=== PATIENT | male | born 1935 | race Caucasian/White ===

== ENCOUNTER → 2022-04-23 12:58 | Outpatient (BNVA) | payer MEDICARE, MEDICAID, SELFPAY | PROVIDERS: Visit Provider Nurse Practitioner Family | DX: I96 Gangrene, not elsewhere classified (principal); L89.602 Pressure ulcer of unspecified heel, stage 2 | CPT/HCPCS: 99213 ==

== ENCOUNTER → 2022-04-30 10:18 | Outpatient (BNVA) | payer MEDICARE, MEDICAID, SELFPAY | PROVIDERS: Visit Provider Nurse Practitioner Family | DX: I96 Gangrene, not elsewhere classified (principal); L89.602 Pressure ulcer of unspecified heel, stage 2 | CPT/HCPCS: 99213 ==

== ENCOUNTER → 2022-05-01 14:13 | Outpatient (BNVA) | payer MEDICARE, MEDICAID, SELFPAY | PROVIDERS: Visit Provider Podiatrist Foot & Ankle Surgery | DX: L97.423 Non-pressure chronic ulcer of left heel and midfoot with necrosis of muscle (principal); S91.309A Unspecified open wound, unspecified foot, initial encounter; X58.XXXA Exposure to other specified factors, initial encounter | CPT/HCPCS: 73630; 87070; 87075; 87077; 87186; 87205; 99204 ==

== ENCOUNTER 2022-05-02 18:22 | Inpatient (IN) | payer MEDICARE, MEDICAID, SELFPAY ==
[2022-05-02 18:58] VITALS: BMI 22.1
--- NOTE | 2022-05-02 19:00 | ED_ITS ---
Documented by User: JUDI Rodriguez 05/02/22 20:28 HPI - Extremity Injury (Lower) General: Chief Complaint: Skin/Abscess/Foreign Body Stated Complaint: left leg infection Time Seen by Provider: 05/02/22 18:59 History of Present Illness: Patient was referred to the ER for evaluation and admittance to the hospital in order to do surgery tomorrow to debride a chronic wound to the left foot. Patient has had increasing worsening of the wound and Dr. Saxena wanted him to come in tonight for admission and plan for surgery in the morning. Patient appears chronically ill but not toxic. Patient reports no nausea or vomiting. Patient reports no fever. Review of Systems Const: Denies: fever(s) Resp: Denies: dyspnea GI: Denies: nausea or vomiting Skin/Breast: Reports: changing lesions Physical Exam Const: COMMON NORMALS: alert HENMT: COMMON NORMALS: normocephalic HEAD & SCALP: normocephalic Resp: COMMON NORMALS: normal respiratory effort and clear to auscultation bilaterally AUSCULTATION: clear to auscultation bilaterally Cardio: COMMON NORMALS: regular rate and regular rhythm RATE: regular rate RHYTHM: regular rhythm Extremity: LEFT LOWER EXTREMITY: Yes foot & digits (Chronic wound to the left heel to deep tissue, significant drainage) Neuro: SENSORIUM/ORIENTATION: Yes alert Skin: LESIONS: lesion noted (Left heel) Course ED course: 2009, reviewed patient with Dr. Byrd whom agreed to plan for admission to the hospital. Vital Signs: Vital signs: Vital Signs Temperature 98.3 F 05/02/22 19:02 Pulse Rate 80 05/02/22 19:02 Respiratory Rate 18 05/02/22 19:02 Blood Pressure 121/76 05/02/22 19:02 Pulse Oximetry 95 05/02/22 19:02 Oxygen Delivery Me thod 05/02/22 19:02 MDM - Extremity Injury (Lower) Medical Decision Making Patient was referred to the emergency department for evaluation and admission to the hospital in order to have wound debridement of a chronic ulcer to the left heel. Patient has had increasing drainage and discomfort to the heel. Patient denies any fever nausea vomiting. On exam patient appears chronically ill but not toxic. Vital signs are normal. Differential diagnosis includes but not limited to sepsis, cellulitis, wound infection, osteomyelitis. Patient's white count was 10,000, creatinine was 1.3, lactate was 2.6. Patient has some elevation in alkaline phosphate 202. CRP was 6.4. X-ray shows no sign of osteomyelitis at this time. Patient needs admission to the hospital for repeat labs and surgical debridement of wound. Reviewed this with Dr. Byrd who agreed to plan for admission. Dr. Saxena is aware of patient's admission to the hospital and plans for surgery tomorrow. Lab Data : 05/02/22 19:10 05/02/22 19:10 Radiology Impressions Foot X-Ray 05/02/22 19:10 IMPRESSION: No sign of osteomyelitis. Laboratory Results WBC 10.9 10^3/uL (4.0-10.0) H 05/02/22 19:10 RBC 4.91 10^6/uL (4.1-5.3) 05/02/22 19:10 Hgb 13.7 g/dL (11.7-16.6) 05/02/22 19:10 Hct 43.2 % (42.0-52.0) 05/02/22 19:10 MCV 88.0 fl (80-94) 05/02/22 19:10 MCH 27.9 pg (28.0-34.0) L 05/02/22 19:10 MCHC 31.7 g/dL (30.0-36.0) 05/02/22 19:10 RDW 16.0 % (12.1-15.1) H 05/02/22 19:10 Plt Count 447 10^3/cmm (130-400) H 05/02/22 19:10 MPV 11.0 fL (7.4-10.4) H 05/02/22 19:10 Neut % (Auto) 69.3 % 05/02/22 19:10 Lymph % (Auto) 16.2 % 05/02/22 19:10 [place] % (Auto) 11.0 % 05/02/22 19:10 Eos % (Auto) 1.8 % 05/02/22 19:10 Baso % (Auto) 1.2 % 05/02/22 19:10 Neut # (Auto) 7.55 10^3/uL (1.8-7.7) 05/02/22 19:10 Lymph # (Auto) 1.8 10^3/uL (0.8-4.8) 05/02/22 19:10 [place] # (Auto) 1.2 10^3/uL (0.2-0.9) H 05/02/22 19:10 Eos # (Auto) 0.2 10^3/uL (0.0-0.8) 05/02/22 19:10 Baso # (Auto) 0.1 10^3/uL (0.0-0.1) 05/02/22 19:10 Nucleated RBC % (auto) 0 % 05/02/22 19:10 Nucleated RBCs # 0.0 /100WBC 05/02/22 19:10 Sodium 130 mmol/L (136-145) L 05/02/22 19:10 Potassium 4.5 mmol/L (3.5-5.1) 05/02/22 19:10 Chloride 95 mmol/L (98-107) L 05/02/22 19:10 Carbon Dioxide 25 mmol/L (22-29) 05/02/22 19:10 Anion Gap 14.5 (5-19) 05/02/22 19:10 BUN 18 mg/dL (8-23) 05/02/22 19:10 Creatinine 1.3 mg/dL (0.7-1.2) H 05/02/22 19:10 GFR Calculation Not Reportable 05/02/22 19:10 Glucose 108 mg/dL (65-115) 05/02/22 19:10 Calculated Osmolality 272 mOsm/kg (285-295) L 05/02/22 19:10 Lactic Acid 2.6 mmol/L (0.5-2.2) H 05/02/22 19:10 Calcium 9.5 mg/dL (8.5-10.5) 05/02/22 19:10 Total Bilirubin 0.7 mg/dL (0.15-1.2) 05/02/22 19:10 AST 18 U/L (0-40) 05/02/22 19:10 ALT 8 U/L (0-41) 05/02/22 19:10 Alkaline Phosphatase 202 U/L (40-130) H 05/02/22 19:10 C-Reactive Protein 6.4 mg/L (0.0-4.9) H 05/02/22 19:10 Total Protein 7.6 g/dL (6.6-8.7) 05/02/22 19:10 Albumin 4.0 g/dL (3.5-5.2) 05/02/22 19:10 Globulin 3.6 g/dL (1.3-4.6) 05/02/22 19:10 Discharge Plan Discharge Patient Disposition: Admitted As Inpatient Clinical Impression: Wound infection, 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 Condition: Stable Coding Level of Care Code ED Aged Or Disabled Care Worker for Chg Fwd Exam Detailed Documented by User: Tommy Barrera DO 05/02/22 20:54 HPI - Extremity Injury (Lower) General: Chief Complaint: Skin/Abscess/Foreign Body Stated Complaint: left leg infection Time Seen by Provider: 05/02/22 18:59 Course Vital Signs: Vital signs: Vital Signs Temperature 98.3 F 05/02/22 19:02 Pulse Rate 80 05/02/22 19:02 Respiratory Rate 18 05/02/22 19:02 Blood Pressure 121/76 05/02/22 19:02 Pulse Oximetry 95 05/02/22 19:02 Oxygen Delivery Me thod 05/02/22 19:02 MDM - Extremity Injury (Lower) Medical Decision Making Patient was referred to the emergency department for evaluation and admission to the hospital in order to have wound debridement of a chronic ulcer to the left heel. Patient has had increasing drainage and discomfort to the heel. Patient denies any fever nausea vomiting. On exam patient appears chronically ill but not toxic. Vital signs are normal. Differential diagnosis includes but not limited to sepsis, cellulitis, wound infection, osteomyelitis. Patient's white count was 10,000, creatinine was 1.3, lactate was 2.6. Patient has some elev ation in alkaline phosphate 202. CRP was 6.4. X-ray shows no sign of osteomyelitis at this time. Patient needs admission to the hospital for repeat labs and surgical debridement of wound. Reviewed this with Dr. Byrd who agreed to plan for admission. Dr. Saxena is aware of patient's admission to the hospital and plans for surgery tomorrow. This patient was originally seen by JUDI Man.? I agree with his history, evaluation, and treatment. Lab Data : 05/02/22 19:10 05/02/22 19:10 Radiology Impressions Foot X-Ray 05/02/22 19:10 IMPRESSION: No sign of osteomyelitis. Laboratory Results WBC 10.9 10^3/uL (4.0-10.0) H 05/02/22 19:10 RBC 4.91 10^6/uL (4.1-5.3) 05/02/22 19:10 Hgb 13.7 g/dL (11.7-16.6) 05/02/22 19:10 Hct 43.2 % (42.0-52.0) 05/02/22 19:10 MCV 88.0 fl (80-94) 05/02/22 19:10 MCH 27.9 pg (28.0-34.0) L 05/02/22 19:10 MCHC 31.7 g/dL (30.0-36.0) 05/02/22 19:10 RDW 16.0 % (12.1-15.1) H 05/02/22 19:10 Plt Count 447 10^3/cmm (130-400) H 05/02/22 19:10 MPV 11.0 fL (7.4-10.4) H 05/02/22 19:10 Neut % (Auto) 69.3 % 05/02/22 19:10 Lymph % (Auto) 16.2 % 05/02/22 19:10 [place] % (Auto) 11.0 % 05/02/22 19:10 Eos % (Auto) 1.8 % 05/02/22 19:10 Baso % (Auto) 1.2 % 05/02/22 19:10 Neut # (Auto) 7.55 10^3/uL (1.8-7.7) 05/02/22 19:10 Lymph # (Auto) 1.8 10^3/uL (0.8-4.8) 05/02/22 19:10 [place] # (Auto) 1.2 10^3/uL (0.2-0.9) H 05/02/22 19:10 Eos # (Auto) 0.2 10^3/uL (0.0-0.8) 05/02/22 19:10 Baso # (Auto) 0.1 10^3/uL (0.0-0.1) 05/02/22 19:10 Nucleated RBC % (auto) 0 % 05/02/22 19:10 Nucleated RBCs # 0.0 /100WBC 05/02/22 19:10 Sodium 130 mmol/L (136-145) L 05/02/22 19:10 Potassium 4.5 mmol/L (3.5-5.1) 05/02/22 19:10 Chloride 95 mmol/L (98-107) L 05/02/22 19:10 Carbon Dioxide 25 mmol/L (22-29) 05/02/22 19:10 Anion Gap 14.5 (5-19) 05/02/22 19:10 BUN 18 mg/dL (8-23) 05/02/22 19:10 Creatinine 1.3 mg/dL (0.7-1.2) H 05/02/22 19:10 GFR Calculation Not Reportable 05/02/22 19:10 Glucose 108 mg/dL (65-115) 05/02/22 19:10 Calculated Osmolality 272 mOsm/kg (285-295) L 05/02/22 19:10 Lactic Acid 2.6 mmol/L (0.5-2.2) H 05/02/22 19:10 Calcium 9.5 mg/dL (8.5-10.5) 05/02/22 19:10 Total Bilirubin 0.7 mg/dL (0.15-1.2) 05/02/22 19:10 AST 18 U/L (0-40) 05/02/22 19:10 ALT 8 U/L (0-41) 05/02/22 19:10 Alkaline Phosphatase 202 U/L (40-130) H 05/02/22 19:10 C-Reactive Protein 6.4 mg/L (0.0-4.9) H 05/02/22 19:10 Total Protein 7.6 g/dL (6.6-8.7) 05/02/22 19:10 Albumin 4.0 g/dL (3.5-5.2) 05/02/22 19:10 Globulin 3.6 g/dL (1.3-4.6) 05/02/22 19:10 Discharge Plan Discharge Patient Disposition: Admitted As Inpatient Clinical Impression: Wound infection, 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
[2022-05-02 19:02] VITALS: BP 121/76; PULSE 80; RESP 18; TEMP 36.8; O2SAT 95
--- NOTE | 2022-05-02 19:10 | XRR_ITS ---
PROCEDURE INFORMATION: Exam: XR Left Foot Exam date and time: 05/02/2022 7:21 PM Age: 87 years old Clinical indication: Swelling, leg or foot; Additional info: Chronic ulcer, infection heel TECHNIQUE: Imaging protocol: Radiologic exam of the Left foot. Views: 3 or more views. COMPARISON: No relevant prior studies available. FINDINGS: Bones/joints: Bones are diffusely osteopenic. Mild hallux valgus deformity. No acute fracture. No bone erosion. Soft tissues: Edema and bandage over the heel. XR/XR foot LT min 3V* [id number] IMPRESSION: No sign of osteomyelitis.
[2022-05-02 19:30] LABS: Basophils # 0.1 10^3/uL (0.0-0.1); Basophils % 1.2 %; Eosinophils # 0.2 10^3/uL (0.0-0.8); Eosinophils % 1.8 %; Hematocrit 43.2 % (42.0-52.0); Hemoglobin 13.7 g/dL (11.7-16.6); Lymphocytes # 1.8 10^3/uL (0.8-4.8); Lymphocytes % 16.2 %; Mean Corpuscular HGB Conc 31.7 g/dL (30.0-36.0); Mean Corpuscular Hemoglobin 27.9 pg (28.0-34.0); Monocytes # 1.2 10^3/uL (0.2-0.9); Neutrophils # 7.55 10^3/uL (1.8-7.7); Neutrophils % 69.3 %; Nucleated Red Blood Cells % 0 %; Platelet Count 447 10^3/cmm (130-400); Red Blood Count 4.91 10^6/uL (4.1-5.3); White Blood Count 10.9 10^3/uL (4.0-10.0)
[2022-05-02 19:51] LABS: Alanine Aminotransferase 8 U/L (0-41); Alkaline Phosphatase 202 U/L (40-130); Anion Gap 14.5 (5-19); Aspartate Amino Transferase 18 U/L (0-40); Blood Urea Nitrogen 18 mg/dL (8-23); C Reactive Protein 6.4 mg/L (0.0-4.9); Calcium 9.5 mg/dL (8.5-10.5); Carbon Dioxide 25 mmol/L (22-29); Chloride 95 mmol/L (98-107); Globulin 3.6 g/dL (1.3-4.6); Glucose 108 mg/dL (65-115); Osmolality Calculated 272 mOsm/kg (285-295); Potassium 4.5 mmol/L (3.5-5.1); Sodium 130 mmol/L (136-145); Total Bilirubin 0.7 mg/dL (0.15-1.2); Total Protein 7.6 g/dL (6.6-8.7)
[2022-05-02 19:52] LABS: Lactic Sepsis W/Reflex 2.6 mmol/L (0.5-2.2)
[2022-05-02 19:55] LABS: Creatinine Clr Calc Pharmacy 40.1744
[2022-05-02 21:07] LABS: Reflex Lactate Order REFLEX LACTIC ORDERD
[2022-05-02 21:43] VITALS: BMI 20.3
[2022-05-02 21:59] VITALS: BP 103/66; PULSE 77; RESP 18; TEMP 36.6; O2SAT 95
[2022-05-02 22:13] VITALS: PULSE 80
--- NOTE | 2022-05-02 22:19 | P.HP_ITS ---
Providers/Chief Complaint Admitting Physician: Chiquita Byrd MD Chief Complaint: left leg infection History of Present Illness Bennett Banuelos is a 87 year old male with a left heel ulcer that was recently evaluated at the podiatry clinic. His wound has been present for about a month now and is thought to be a pressure ulcer. Patient recently had surgery for fracture of his left hip and during recovery he was fairly sedentary which resulted in a pressure ulcer over his left wound healed. He had been following at the wound care clinic and was prescribed Zyvox, however it appears that the patient did not take it. He was additionally prescribed ciprofloxacin recently from Dr. Saxena's clinic but is uncertain if he has been taking it. More recently his foul has had a malodorous discharge and in need of debridement because of which she is currently admitted to the hospital and is planned to go to the OR tomorrow morning. It appears deep tissue cultures were taken at the clinic, however these are not currently available for review in the system. His medical comorbidities include hypertension, chronic smoking, history of CAD. No complaints fever chills. Review of Systems General: Reports: 10 or more systems reviewed and unremarkable except in HPI and below Const: Denies: fever(s), chills or body aches Eyes: Denies: change in vision, blurry vision or photophobia ENMT: Reports: hoarseness; Denies: throat pain, enlarged tonsils, odynophagia or nasal congestion Card: Denies: chest pain, palpitations, irregular heart rhythm, edema, swelling of feet/ankles, lightheadedness, pre-syncope, dyspnea on exertion or orthopnea Resp: Denies: dyspnea, productive cough, non-productive cough, wheezing, stridor, pain on inspiration, change in phlegm color, hemoptysis or chest congestion GI: Denies: abdominal pain, nausea, vomiting, hematemesis, coffee ground rajwinder sis, dysphagia, heartburn, diarrhea, constipation, GI cramping, change in stool character, hematochezia or melena : Denies: flank pain, dysuria, urinary frequency, urinary urgency, urinary hesitancy or hematuria Musc: Denies: neck pain, back pain, extremity pain, joint swelling, joint warmth or deformity Neuro: Denies: headache(s), numbness in extremities, weakness in extremities, sensory changes, difficulty walking, frequent falls, dizziness, vertigo, behavioral changes, Slurred speech present or seizure-like activity Psych: Denies: anxiety, depression, suicidal ideation or homicidal ideation Endo: Denies: polyuria, polydipsia, tired all the time, cold intolerance or hot flashes Emeterio/Lymph: Denies: easy bruising or easy bleeding Medications/Allergies Home Medications Medication Instructions Recorded Confirmed Last Taken Type No Known Home Medications 05/01/22 05/01/22 Unknown History Allergies Allergy/AdvReac Type Severity Reaction Status Date / Time No Known Allergies Allergy Verified 05/02/22 21:50 PFSH Acute PFSH: Medical History (Updated 05/02/22 @ 22:25 by Chiquita Byrd MD) C. difficile colitis CAD (coronary artery disease) CHF (congestive heart failure) Diverticulitis DVT (deep venous thrombosis) Surgical History (Updated 05/02/22 @ 22:25 by Chiquita Byrd MD) Hx of CABG Vitals/I&O/Wt Last Vital Signs Temp 97.8 F 05/02/22 21:59 Pulse 77 05/02/22 21:59 Resp 18 05/02/22 21:59 BP 103/66 05/02/22 21:59 Pulse Ox 95 05/02/22 21:59 O2 Del Method 05/02/22 21:59 Weight last 48 hrs Weight 62.414 kg Weight 68.039 kg Physical Exam Narrative: General: No acute distress, AO x3 HEENT: PERRLA, pupils bilaterally equal and reactive, pallors not present Chest: Normal vesicular breath sounds, no added sounds, equal good air entry bilaterally CVS: S1-S2 regular, no murmurs, no tachycardia, no gallops, no rubs Abdomen: Soft, nontender, no organomegaly, bowel sounds present Neuro: No focal deficits, no facial deformity, AO x3, power 5/5 in all limbs Extremities: left calcaneus wound approximately 5 x 5 x .5cm Data : 05/02/22 19:10 05/02/22 19:10 Micro: Microbiology 05/02/22 19:10 Blood Culture - Preliminary Blood SPECIMEN COLLECTED 05/02/22 19:10 Blood Culture - Preliminary Blood SPECIMEN COLLECTED A&P Assessment and plan (1) Wound infection: Patient sent from podiatry clinic with nonhealing lower extremity wound in need of debridement. Will be admitted to [facility] Empiric antibiotics with Zosyn and vancomycin Abnormal JASON of 0.6 obtained at the wound care clinic, will order follow-up arterial duplex, poor peripheral pulses raise suspicion for peripheral artery disease which may be contributing to the poor healing state. We will additionally check lower extremity venous Doppler. Patient is not a known diabetic, however will check HbA1c to ensure. N.p.o. postmidnight Normal saline 50 cc an hour, careful hydration due to reported history of CHF. Unknown estimate of systolic or diastolic function at this time. Will evaluate with echocardiogram. Attestations Medical Necessity Statement*: Anticipate greater than 2 midnight admission for IV antibiotics, vascular studies, need for surgical debridement. Coding Level of Care Code Acute Manufacturing Scheduler for Latonia Olguin Diagnoses Wound infection T14.8XXA; L08.9
[2022-05-02 22:24] LABS: Lactic Acid level (Lactate) 1.4 mmol/L (0.5-2.2)
--- NOTE | 2022-05-02 22:33 | PC.NURSE ---
ADMIT NOTE Pt was received to floor from ER via wheelchair at 2124. Alert and oriented. Says has sore on his left heel that Dr Saxena is going to take him to surgery to clean up in the am. Says wound started while he was recovering from recent hip surgery. Has soft boot/dressing to left foot. Tells me he is unable to put any wt on left foot. Foot is edematous. VS check done and was changed into a gown. Is aware will be NPO after midnight. Will be started on IV fluids and IV antibiotics
[2022-05-02] MEDS: enoxaparin 40 mg/0.4 mL Syringe SUBCUT (22:44)
[2022-05-02] MEDS: sodium chloride 0.9% 1,000 ML 50 ML IV (22:45)
--- NOTE | 2022-05-02 22:49 | PC.PHAR ---
Pharmacokinetic dosing service Date: 05/02/22 Time: 2299 Objective: Patient: Bennett Banuelos Floor: 258-1 Age: 87 yo Serum creatinine: 1.3 mg/dL Height: 69.0 Inches Weight (kg): 62.414 Diagnosis: Relevant medical/social history: Cultures and sensitivities: Other labs: Assessment: IBW (kg): 70.70 Dosing wt(kg): 62.414 Estimated Creatinine clearance (ml/min): 36.0 CRCL method: Cockcroft and Gault using ibw(default). Drug selected: Vancomycin Loading dose (mg): 0 Vd (liters): 56.2 (factor used: 0.9 L/kg) Tobin (hr-1): 0.034 Half life (hrs): 20.39 Recommended dose: 1000 mg Interval: 24 hrs Infusion time (hrs): 1.5 Predicted peak (mcg/mL): 31.1 Predicted trough (mcg/mL): 14.47 Total body weight is being used for vancomycin dosing. Renal function is stable [ ] /unstable [ ] Recommendations: Give Vancomycin 1000 mg q 24 hrs with an expected Cpeak of 31.1 mcg/ml and an expected Ctrough of 14.47 mcg/ml Renal dosing of other antibiotics (review renal dosing of other medications and list guidelines here): Thank you for the consult, will continue to follow. Signature: Joselin Ramos [facility]
[2022-05-02 23:03] LABS: Chol HDL Ratio 2.47 mg/dL (1.0-5.00); Cholesterol 143 mg/dL (0-200); HDL Cholesterol 58 mg/dL (60-100); LDL Cholesterol Calculated 69 mg/dL (50-129); LDL HDL Ratio 1.19 RATIO (0.00-3.22); Triglycerides 79 mg/dL (0-150)
[2022-05-02] MEDS: vancomycin 1,000 MG in sodium chloride 0.9% 250 ML 250 MG IV (23:16)
[2022-05-02 23:19] LABS: Estmated Average Glucose 103; Hemoglobin A1C 5.2 % (4.0-6.0)
[2022-05-03] VITALS (19 sets, daily range): BP systolic 86–135; BP diastolic 49–72; PULSE 78–82; RESP 16–20; TEMP 36.2–37.1; O2SAT 91–96
[2022-05-03] MEDS: piperacillin-tazobactam 3.375 GM in sodium chloride 0.9% (plus) 50 ML IV ×2 (00:28→16:30)
--- NOTE | 2022-05-03 06:10 | PC.NURSE ---
PREP FOR OR Pre-op checklist completed this am and pt was given Chlorhexadine wipe and fresh gown on. NPO since midnight. Dressing to left heel was removed and wound was cleansed with NS and redressed with 4X4's and Kerlex wrap. Odorous thick purulent vasquez drainage noted. LLE as been elevated on pillows to keep heel off bed. SCD to right leg only.
--- NOTE | 2022-05-03 06:35 | XRR_ITS ---
PROCEDURE INFORMATION: Exam: XR Chest Exam date and time: 05/03/2022 11:41 AM Age: 87 years old Clinical indication: Other: Chf; Prior surgery TECHNIQUE: Imaging protocol: Radiologic exam of the chest. Views: 1 view. Total images: 3 COMPARISON: CT abdomen pelvis w con* [id number] 02/27/2017 6:39 AM FINDINGS: Tubes, catheters and devices: A pacemaker device is present, its leads in appropriate position. Lungs: Pulmonary hyperinflation, suggesting COPD. Benign granulomatous disease of the lung is noted. Trace atelectasis or scar noted in the left lung base. Pleural spaces: Unremarkable. No pleural effusion. No pneumothorax. Heart/Mediastinum: Unremarkable. No cardiomegaly. Bones/joints: Changes of sternotomy are noted. Diffuse osteopenia noted. XR/XR chest 1V portable [id number] IMPRESSION: 1. Pulmonary hyperinflation, suggesting COPD. 2. Trace atelectasis or scar noted in the left lung base.
--- NOTE | 2022-05-03 06:35 | USCV_ITS ---
Bennett Banuelos Age: 87 Gender: M : 1935 Exam Date: 05/03/2022 07:00 Ordering Phys: Chiquita Byrd MD Technologist: Gage Marie Exam Location: [facility] [place] Indication: Congestive heart failure BP: 112 / 71 HR: 53 Rhythm: Sinus Technical Quality: Adequate MEASUREMENTS (Male / Female) Normal Values 2D ECHO LV Diastolic Diameter PLAX 5.1 cm 4.2 - 5.9 / 3.9 - 5.3 cm LV Systolic Diameter PLAX 4.0 cm IVS Diastolic Thickness 1.2 cm 0.6 - 1.0 / 0.6 - 0.9 cm IVS Systolic Thickness 1.5 cm LVPW Diastolic Thickness 1.1 cm 0.6 - 1.0 / 0.6 - 0.9 cm LVPW Systolic Thickness 1.3 cm LVOT Diameter 2.1 cm LV Ejection Fraction 2D Teich 44.4 % LA Diameter 3.5 cm Aorta at Sinotubular Diameter 2.9 cm M-MODE RV Diastolic Diameter MM 1.5 cm Aortic Annulus Diameter 3.3 cm LA Ao Ratio MM 1.1 MV E Point Septal Separation 1.5 cm DOPPLER AV Peak Velocity 151.0 cm/s LVOT Peak Velocity 87.0 cm/s AV Area Cont Eq vti 1.4 cm squared AV Area Cont Eq pk 2.0 cm squared MV Area PHT 5.0 cm squared Mitral E to A Ratio 1.9 MV E' Velocity 44.5 cm/s Mitral E to MV E' Ratio 8.2 Mitral E to LV E' Lateral Ratio 5.4 Mitral E to LV E' Septal Ratio 17.1 TR Peak Velocity 224.0 cm/s TR Peak Gradient 20.1 mmHg TV Peak E Velocity 88.0 cm/s Right Atrial Pressure 3.0 mmHg Pulmonary Artery Systolic Pressu 23.1 mmHg RV Acceleration Time 0.1 s FINDINGS Left Ventricle Normal left ventricular cavity size. Moderately decreased left ventricular systolic function. Left ventricular ejection fraction is estimated at 35 %. There is hypokinesis of basal to apical inferior, basal to mid inferoseptal mckeon. Right Ventricle Normal right ventricular size. Low normal right ventricular systolic function. Right Atrium Mild increased right atrial size. Left Atrium Moderately increased left atrial size. Mitral Valve Mildly thickened mitral valve. No mitral valve stenosis. Trace mitral valve regurgitation. Aortic Valve Aortic valve not well visualized. No aortic valve stenosis. No aortic valve regurgitation. Tricuspid Valve Structurally normal tricuspid valve. Trace tricuspid valve regurgitation. Pulmonic Valve Pulmonic valve not well visualized. Pericardium No pericardial effusion. Aorta Aorta not well visualized. Normal-sized aortic root. IVC Inferior vena cava not visualized. CONCLUSIONS 1. This is a technically difficult study with poor parasternal and subcostal windows. 2. Normal left ventricular cavity size. Moderately decreased left ventricular systolic function. Left ventricular ejection fraction is estimated at 35 %. There is hypokinesis of basal to apical inferior, basal to mid inferoseptal mckeon. 3. No prior similar studies to compare. Sharon Bailon MD (Electronically Signed) Final Date: 03 May 2022 12:03 S
--- NOTE | 2022-05-03 06:43 | USR_ITS ---
PROCEDURE INFORMATION: Exam: US Duplex Lower Extremity Veins, Bilateral Exam date and time: 05/03/2022 10:45 AM Age: 87 years old Clinical indication: Screening exam; ? Dvt TECHNIQUE: Imaging protocol: Real-time Duplex ultrasound of the bilateral extremities with 2-D fajardo scale, color Doppler flow and spectral waveform analysis with image documentation. Complete exam focused on the bilateral lower extremity veins. Total images: 1 COMPARISON: CR (LOW EXM, ) 05/02/2022 7:21 PM FINDINGS: Right deep veins: Unremarkable. The common femoral, femoral, proximal profunda femoral and popliteal veins are patent without thrombus. Normal Doppler waveforms. Normal compressibility and/or augmentation response. Right superficial veins: Saphenofemoral junction is patent without thrombus. Left deep veins: Unremarkable. The common femoral, femoral, proximal profunda femoral and popliteal veins are patent without thrombus. Normal Doppler waveforms. Normal compressibility and/or augmentation response. Left superficial veins: Saphenofemoral junction is patent without thrombus. Soft tissues: Tsai cyst noted in right popliteal fossa. US/[place] [id number] IMPRESSION: No evidence of deep vein thrombosis.
--- NOTE | 2022-05-03 06:43 | USR_ITS ---
PROCEDURE INFORMATION: Exam: US Duplex Left Lower Extremity Arteries Or Arterial Bypass Grafts Exam date and time: 05/03/2022 10:55 AM Age: 87 years old Clinical indication: Other: Ulcer lt foot; Prior surgery; Surgery date: Post-operative (0-2 days); Surgery type: Lt foot ulcer; Additional info: Abnormal zac 0.6 TECHNIQUE: Imaging protocol: Left Real-time duplex scan of the arteries or arterial bypass grafts of the left lower extremity with 2-D fajardo scale, color Doppler flow and spectral waveform analysis. Images documented and saved. Total images: 357 COMPARISON: US CV venous duplex [facility] [id number] 05/03/2022 10:45 AM FINDINGS: Moderate atherosclerotic burden. Left common femoral artery: No occlusion or significant stenosis. Monophasic waveform suggest proximal/aortic iliac disease. Left superficial femoral artery: No occlusion or significant stenosis. Monophasic waveform. Left popliteal artery: No occlusion or significant stenosis. Monophasic waveform. Left calf/foot arteries: No occlusion or significant stenosis in the visualized arteries. Normal waveforms. Dorsalis pedis artery shows no flow. Left ankle brachial index of 0.6. US/CV arterial duplex [facility] [id number] IMPRESSION: Moderate atherosclerotic burden with monophasic waveform throughout without visualized stenosis suggesting more proximal/aortic iliac disease. No flow demonstrated in left dorsalis pedis artery. Ankle brachial index of 0.6 suggest claudication zone.
--- NOTE | 2022-05-03 07:14 | ECG_ITS ---
[facility] Test Date: 2022-05-03 Pat Name: Bennett Banuelos Department: Room: 258 Gender: Male Poultry Raiser: : 1935 Requested By: Chiquita Byrd Order Number: [id number] Manju MD: Sharon Bailon M.D. Measurements Intervals [place] Rate: 80 P: 180 HI: 188 QRS: -80 QRSD: 206 T: 97 QT: 460 QTc: 531 Interpretive Statements ELECTRONIC ATRIAL PACEMAKER ELECTRONIC VENTRICULAR PACEMAKER ABNORMAL RHYTHM ECG No previous ECG available for comparison Electronically Signed On 05-03-2022 9:47:11 CATERERS HELPER by Sharon Bailon M.D. [id number]
--- NOTE | 2022-05-03 07:17 | PM.CONSULT ---
Providers/Reason For Consult Consulting Physician/Specialty*: Josse Saxena D.P.M. Reason for Consult*: Left heel ulcer Attending Physician: Chiquita Byrd MD History of Present Illness History of Present Illness New 87-year-old nondiabetic male referred to podiatry clinic for evaluation of decubitus heel ulcer, left.? Patient reports about a month ago he fractured his left hip, during his recovery due to being sedentary he developed a left heel wound.? He was seen at wound care and was prescribed Zyvox, patient states he did not take the antibiotic after reading the warning label and going through the adverse side effects.? Patient has diminished circulation, ABIs have been performed.? Per wound care documentation 04/23/2022 JASON was 0.6 at the left.? Patient is a current every day smoker pack a day, started smoking at age 89 years old.? Patient has a history of CHF, DVT and history of hypertension and heart attack.? History of coronary artery bypass graft.? He is accompanied by family.? Patient denies any subjective nausea, vomiting, fever, chills, shortness of breath or chest pain. Review of Systems General: Reports: 10 or more systems reviewed and unremarkable except in HPI and below Const: Denies: fever(s) or chills Eyes: Denies: change in vision Card: Denies: chest pain or palpitations Resp: Denies: dyspnea or productive cough GI: Denies: abdominal pain, nausea or vomiting : Denies: flank pain Musc: Reports: extremity swelling, joint stiffness and deformity Skin/Breast: Reports: erythema, sores, changes in skin color, dry skin, nail changes and change in hair Neuro: Reports: numbness in extremities, sensory changes and difficulty walking Psych: Denies: suicidal ideation Endo: Denies: change in body appearance Emeterio/Lymph: Denies: tender lymph nodes Medications/Allergies Home Medications Medication Instructions Recorded Confirmed Last Taken Type No Known Home Medications 05/01/22 05/01/22 Unknown History Allergies Allergy/AdvReac Type Severity Reaction Status Date / Time No Known Allergies Allergy Verified 05/02/22 21:50 Current Medications Generic Name Dose Route Start Last Admin Trade Name Freq PRN Reason Stop Dose Admin Enoxaparin Sodium 40 mg 05/02/22 22:30 05/02/22 22:44 Enoxaparin 40 Mg/0.4 Ml Syringe SUBCUT 40 mg Q24H BRYANNA Administration Sodium Chloride 1,000 mls @ 50 mls/hr 05/02/22 22:15 05/02/22 22:45 Sodium Chloride 0.9% IV 50 mls/hr .Q20H BRYANNA Administration Piperacillin Sod/Tazobactam 50 mls @ 12.5 mls/hr 05/03/22 01:00 IMPROVEMENT DIRECTOR 05/03/22 03:51 Sod 3.375 gm/ Sodium Chloride IV Infused Q8H BRYANNA Infusion Protocol Vancomycin HCl 1,000 mg/ 250 mls @ 250 mls/hr 05/02/22 23:00 05/03/22 00:29 Sodium Chloride IV Infused Q24H BRYANNA Infusion PFSH Acute PFSH: Medical History (Updated 05/02/22 @ 22:25 by Chiquita Byrd MD) C. difficile colitis CAD (coronary artery disease) CHF (congestive heart failure) Diverticulitis DVT (deep venous thrombosis) Surgical History (Updated 05/02/22 @ 22:25 by Chiquita Byrd MD) Hx of CABG Vitals/I&O/Wt Last Vital Signs Temp 97.3 F L 05/03/22 03:53 Pulse 80 05/03/22 06:00 Resp 18 05/03/22 03:53 BP 107/68 05/03/22 03:53 Pulse Ox 94 05/03/22 03:53 O2 Del Method 05/03/22 03:53 05/02/22 05/03/22 05/03/22 23:59 06:59 14:59 Intake Total Output Total Balance Weight last 48 hrs Weight 137 lb 9.6 oz Weight 150 lb Physical Exam Narrative: GENERAL: Patient is alert and oriented ?3 and in no acute distress.? The following is a focused bilateral lower extremity exam.? Accompanied by family.? Utilizing a wheelchair. VASCULAR: Dorsalis pedis diminished, posterior tibial arteries diminished.? Capillary refill time less than 5 seconds to the distal hallux bilaterally. Calf is supple and nontender proximally and distally.? Decreased pedal hair growth. NEUROLOGICAL: Protective sensation diminished to light touch. DERMATOLOGICAL: Decubitus heel ulcer, left measures 5.3 cm x 4.2 cm x 0.5 cm, has eschar, foul odor, no periwound erythema or proximal lymphangitic streaking.? Does not probe to bone.? Has devitalized base and devitalized fat tissue. MUSCULOSKELETAL: Tenderness to palpation exquisitely to the left posterior heel.? No crepitus with soft tissue palpation. 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 Clinical picture of his wound requires surgical debridement and IV antibiotics, patient is sensate and unable to tolerate wound debridement at bedside.? Wound exposed to muscle layer with foul malodor.? Given the location, depth and amount of soft tissue necrosis and the presence of peripheral arterial disease patient is a risk for loss of limb. WBC 10.9 CRP 6.4 Left foot x-rays performed in podiatry clinic, negative for bony destruction, cortical irregularity or foreign body, no soft tissue emphysema Aerobic and anaerobic wound cultures taken of the left heel in podiatry clinic sent to microbiology for gram stain, culture and sensitivity Will require multidisciplinary approach for limb salvage, recommend vascular consult, recommend infectious disease consult. Will plan for surgical debridement 05/03/2020 2 in the AM with Dr. Saxena. Patient is n.p.o. 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
--- NOTE | 2022-05-03 07:23 | W.PM.OPSUD ---
Surgery/Procedure H&P Update DATE OF PROCEDURE: May 03, 2022 DATE H&P PERFORMED: 05/02/22 CHANGES TO PREVIOUS DOCUMENTATION: none PLANNED PROCEDURE: Operation Date: 05/03/22 08:10 Proposed Procedures p Incision And Drainage Left Foot possible wound vac placement(Left) - Josse Saxena DPM
--- NOTE | 2022-05-03 07:46 | ANES.PREANE2 ---
Pre-Anesthetic Assessment Height/Weight: Height 1.75 m Weight 62.414 kg Temp Pulse Resp BP Pulse Ox O2 Del Method 97.2 F L 79 16 114/69 94 05/03/22 07:30 05/03/22 07:30 05/03/22 07:30 05/03/22 07:30 05/03/22 07:30 05/03/22 07:30 Operation Date: 05/03/22 08:10 Proposed Procedures p Incision And Drainage Left Foot possible wound vac placement(Left) - Josse Saxena DPM Familial anesthetic complications: None Was Beta Thu taken within 24 hours: N/A Was Clonidine taken within 24 hours: N/A Last intake: Intake Last Liquid Date 05/02/22 Last Liquid Time 23:45 Last Solid Date 05/02/22 Last Solid Time 12:00 Social Tobacco and No alcohol Exam alert, oriented x 3, clear to auscultation bilaterally and regular rate & rhythm Airway Cervical ROM: within normal limits Mallampati: Class II Dentition: other (none) Comments: Comments: Full velasquez Pulmonary Chronic Obstructive Pulmonary Disease (1-2 l NC prn when exerting self in hot temperatures) CV/HEM 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), Coronary Artery Disease (cabg, stents X3), Congestive Heart Failure, Deep Vein Thrombosis and Myocardial Infarction Metabolic Thyroid Disease Anesthetic Plan ASA status: 4 Anesthesia: MAC Risk of > 500 ml blood loss (7ml/kg in children): No Medications/Allergies Home Medications Medication Instructions Recorded Confirmed Last Taken Type No Known Home Medications 05/01/22 05/01/22 Unknown History Allergies Allergy/AdvReac Type Severity Reaction Status Date / Time No Known Allergies Allergy Verified 05/02/22 21:50 Current Medications Generic Name Dose Route Start Last Admin Trade Name Freq PRN Reason Stop Dose Admin Enoxaparin Sodium 40 mg 05/02/22 22:30 05/02/22 22:44 Enoxaparin 40 Mg/0.4 Ml Syringe SUBCUT 40 mg Q24H BRYANNA Administration Sodium Chloride 1,000 mls @ 50 mls/hr 05/02/22 22:15 05/02/22 22:45 Sodium Chloride 0.9% IV 50 mls/hr .Q20H BRYANNA Administration Piperacillin Sod/Tazobactam 50 mls @ 12.5 mls/hr 05/03/22 01:00 HEAD STOCK TRANSFER CLERK 05/03/22 03:51 Sod 3.375 gm/ Sodium Chloride IV Infused Q8H BRYANNA Infusion Protocol Vancomycin HCl 1,000 mg/ 250 mls @ 250 mls/hr 05/02/22 23:00 05/03/22 00:29 Sodium Chloride IV Infused Q24H BRYANNA Infusion PFSH Anesthesia Medical History (Updated 05/02/22 @ 22:25 by Chiquita Byrd MD) C. difficile colitis CAD (coronary artery disease) CHF (congestive heart failure) Diverticulitis DVT (deep venous thrombosis) Surgical History (Updated 05/02/22 @ 22:25 by Chiquita Byrd MD) Hx of CABG Data Anesthesia : 05/02/22 19:10 05/02/22 19:10 Short CBC 05/02/22 Range/Units 19:10 WBC 10.9 H (4.0-10.0) 10^3/uL Hgb 13.7 (11.7-16.6) g/dL Hct 43.2 (42.0-52.0) % MCV 88.0 (80-94) fl Plt Count 447 H (130-400) 10^3/cmm Neut % (Auto) 69.3 % Neut # (Auto) 7.55 (1.8-7.7) 10^3/uL BMP 05/02/22 19:10 Sodium 130 L Potassium 4.5 Chloride 95 L Carbon Dioxide 25 BUN 18 Creatinine 1.3 H Glucose 108 Calcium 9.5 Liver Function 05/02/22 Range/Units 19:10 Total Bilirubin 0.7 (0.15-1.2) mg/dL AST 18 (0-40) U/L ALT 8 (0-41) U/L Alkaline Phosphatase 202 H (40-130) U/L Albumin 4.0 (3.5-5.2) g/dL Coags 05/02/22 19:10 C-Reactive Protein 6.4 H Microbiology 05/02/22 19:10 Blood Culture - Preliminary Blood SPECIMEN COLLECTED 05/02/22 19:10 Blood Culture - Preliminary Blood SPECIMEN COLLECTED Cardiac Studies: No Data to Display
[2022-05-03] MEDS: lidocaine 1% INJ 20 mL SUBCUT (08:32)
--- NOTE | 2022-05-03 09:01 | PM.OP ---
Operative Report Date of procedure: May 03, 2022 Pre-op diagnosis: Grade 4 decubitus heel ulcer, left. Infected diabetic foot ulcer, left. Osteomyelitis, left calcaneus. Peripheral arterial disease. Post-op diagnosis: Same Post-op findings: Devitalized soft tissue down to bone, left calcaneus. Procedure done: Incision of bone cortex, left calcaneus. CPT code 34037 Application of negative pressure wound VAC, left lower extremity. CPT code 83210 Implants: Granula foam wound VAC dressing Specimens removed/disposition: Left calcaneus bone biopsy sent to microbiology for gram stain and culture Pathology: None Surgeon: Josse Saxena D.P.M. Maintainer Central Office: [place] Estimated blood loss: 10 12 IV fluids: None Urine output: None Complications: None Findings: Dudley, devitalized periosteum and bone to the posterior calcaneus, left. Brief History: Patient reports a worsening of the left heel wound that has progressed over the past month. Went to wound care twice, second visit he was directed to podiatry clinic for surgical consultation due to foul-smelling and heavily devitalized wound. Patient is not diabetic. He has full sensation. Reports significant pain at the left posterior heel. Unable to tolerate debridement in clinic. Patient admitted to hospital for IV antibiotics and surgical debridement. Recommending debridement and wound VAC, possibly will require a PICC line. I reviewed at length with the patient, the risks, potential complications, benefits, alternatives, expectations, and typical outcomes associated with the surgery. The risks and potential complications were explained in detail, including but not limited to infection, wound dehiscence or soft tissue complications, bleeding and hematoma, chronic edema, neuritis or nerve damage producing numbness or chronic pain, CRPS, failure to relieve pain or worsening pain, thick / painful / unsightly scar, limited motion / stiffness, malposition, delayed union, malunion, or nonunion, fracture, reaction to implants, anesthetic complications, venous thromboembolism, and deformity recurrence. I discussed the notion of no regrets with the patient as it pertains to complications and outcomes. The patient seemed to understand the nature of the proposed care and required convalescence. They asked appropriate questions, answered to their satisfaction. They are aware no guarantees can be made as to a satisfactory outcome and they understand there may be other possible unforeseen complications or outcomes not listed here that will be treated accordingly if they arise. There were no written or implied guarantees given to the patient. They gave informed consent to proceed. Procedure: Under mild sedation the patient was brought to the operating room and remained on the gurney in supine position. A timeout was performed. Anesthesia was then administered by the anesthesia service. Local anesthesia injected by myself consisting of 30 cc of one-to-one mixture 1% lidocaine and 0.25% Marcaine plain at the posterior distal leg, left lower extremity. Well-padded pneumatic tourniquet applied to the left ankle. Patient was then positioned to lateral decubitus position right side down with appropriate padding and support. The left lower extremity was then scrubbed, prepped and draped utilizing normal aseptic technique. Attention was directed to the left posterior heel where predebridement wound measurements were 5.3 cm x 4.2 cm x 0.5 cm with foul-smelling odor, purulent drainage and periwound erythema, necrotic fat and subcutaneous tissue and devitalized periosteum and bone at the left posterior calcaneus at the 2 o'clock position within the wound, periosteum was dark dudley and poor texture, appear to be inflammatory and devitalized. The wound was debrided heavily with pickups and #15 blade of devitalized tissue which was passed from the field. Copious months of irrigation with sterile saline was performed. Further debridement down to bone cortex was performed sharply with pickups, 15 blade and a rongeur, bone of the left posterior calcaneal tuberosity was sent to microbiology for gram stain and culture, this will help guide antibiotic therapy for causative organisms. The incision was further irrigated with copious amounts of sterile skin solution. Some bleeding more heavily at the 6 o'clock position, bleeders were ligated and cauterized as necessary. A tourniquet was then inflated for hemostasis prior to application of wound VAC. Post debridement wound measurements 6.0 cm x 4.5 cm x 0.8 cm with improved appearance. A wound VAC was then applied directly to the wound bed, excellent seal and set at 125 mm of continuous negative pressure. Tourniquet was then deflated and a hyperemic response was noted to the distal digits of the left foot. Patient tolerated the procedure and anesthesia well and was transferred to the PACU with vital signs stable and vascular status intact. Following a period of postoperative monitoring he will be transferred back to the floor to continue empiric IV antibiotics. Patient may toe-touch to the left lower extremity for transfers. Anticipate PICC line at discharge and wound care follow-up.
--- NOTE | 2022-05-03 10:18 | P.PCN_ITS ---
PACU note Narrative: VSS, Good respiratory effort, report to CALENDER SUPERVISOR Exam: awake
--- NOTE | 2022-05-03 10:18 | PM.PACU ---
PACU note Narrative: VSS, Good respiratory effort, report to WOOD DRILLING MACHINE OPERATOR Exam: awake
--- NOTE | 2022-05-03 10:22 | ANE.PACU2 ---
Inpatient post-anesthesia follow up: Airway intact: Yes Vital signs: Temperature 97.4 F Pulse Rate 82 Respiratory Rate 16 Blood Pressure 135/71 Pulse Oximetry 95 Oxygen Delivery Me thod Room Air Oxygen Flow Rate Fraction of Inspir ed Oxygen Hydration adequate: Yes Nausea and vomiting: No Pain level: 1 Mental status: Baseline
[2022-05-03 10:37] LABS: Basophils # 0.1 10^3/uL (0.0-0.1); Basophils % 1.4 %; Eosinophils # 0.1 10^3/uL (0.0-0.8); Eosinophils % 1.7 %; Hemoglobin 11.7 g/dL (11.7-16.6); Lymphocytes # 1.3 10^3/uL (0.8-4.8); Lymphocytes % 16.9 %; Mean Corpuscular HGB Conc 30.8 g/dL (30.0-36.0); Mean Corpuscular Hemoglobin 27.9 pg (28.0-34.0); Mean Corpuscular Volume 90.7 fl (80-94); Mean Platelet Volume 10.8 fL (7.4-10.4); Monocytes % 12.4 %; Neutrophils # 5.14 10^3/uL (1.8-7.7); Neutrophils % 67.2 %; Nucleated Red Blood Cells % 0 %; Platelet Count 325 10^3/cmm (130-400); Red Blood Count 4.19 10^6/uL (4.1-5.3); Red Cell Distribution Width 16.2 % (12.1-15.1); White Blood Count 7.7 10^3/uL (4.0-10.0)
[2022-05-03 11:13] LABS: Procalcitonin 0.09 ng/mL (0-0.5); Thyroid Stimulating Hormone 8.48 uIU/mL (0.27-4.20)
[2022-05-03 11:24] LABS: Alanine Aminotransferase < 5 U/L (0-41); Alkaline Phosphatase 154 U/L (40-130); Anion Gap 12.4 (5-19); Aspartate Amino Transferase 14 U/L (0-40); Blood Urea Nitrogen 14 mg/dL (8-23); Calcium 8.6 mg/dL (8.5-10.5); Carbon Dioxide 25 mmol/L (22-29); Chloride 100 mmol/L (98-107); Glucose 82 mg/dL (65-115); Iron 43 ug/dL (59-158); Osmolality Calculated 276 mOsm/kg (285-295); Percent Saturation 23.8 % (20-50); Potassium 4.4 mmol/L (3.5-5.1); Sodium 133 mmol/L (136-145); Total Bilirubin 0.9 mg/dL (0.15-1.2); Total Iron Binding Capacity 180 mcg/dl; Unsaturated Iron Binding 137 ug/dL (112-347)
--- NOTE | 2022-05-03 12:14 | PM.PN ---
Subjective Subjective: Admitted overnight. Seen with family at bedside post OR. Awake and alert. Denies any nausea, vomiting, headache. Vitals/I&O/Wt Last Vital Signs Temp 97.8 F 05/03/22 10:35 Pulse 80 05/03/22 11:37 Resp 20 H 05/03/22 11:37 BP 120/72 05/03/22 11:37 Pulse Ox 96 05/03/22 11:37 O2 Del Method 05/03/22 11:37 05/02/22 05/03/22 05/03/22 23:59 06:59 14:59 Intake Total 0 / 0 Output Total Balance - Weight last 48 hrs Weight 62.414 kg Weight 68.039 kg Physical Exam Narrative: EXAM NARRATIVE: General: No acute distress, AO x3, NC oxygen supplementation, pallor present, slightly dehydrated HEENT: PERRLA, pupils bilaterally equal and reactive Chest: Bilateral no vesicular breath sounds present, fine crackles bilaterally lower zone CVS: S1-S2 irregularly irregular, no murmurs, no tachycardia, no gallops, no rubs Abdomen: Soft, nontender, no organomegaly, bowel sounds present, morbidly obese Neuro: No focal deficits, no facial deformity, AO x3, power 5/5 in all limbs Extremities: Left leg surgically bandaged with wound VAC in place Data : 05/03/22 10:25 05/03/22 10:25 Micro: Microbiology 05/02/22 19:10 Blood Culture - Preliminary Blood SPECIMEN COLLECTED 05/02/22 19:10 Blood Culture - Preliminary Blood SPECIMEN COLLECTED A&P Assessment and plan (1) Acute osteomyelitis of left calcaneus: Post debridement day 0. Appreciate Dr. Saxnea's recommendation. Wound VAC in place. Continue with empiric antibiotics. Follow-up over cultures, blood cultures. Outpatient wound cultures growing gram-negative rods. We will continue to follow cultures. Most likely patient will need IV antibiotics for 6 weeks. Discussed with the patient regarding the same and possibility of PICC line placement. Patient verbalized understanding. Anticoagulation, physical therapy, weightbearing as per podiatry. (2) Decubitus ulcer: (3) Peripheral arterial disease: Awaiting results of arterial duplex. Check A1c, lipid panel. Continue with statin. Start on aspirin 81 mg daily. (4) CHF (congestive heart failure): No old echocardiogram in the chart. Echocardiogram done during this hospitalization shows EF 35%, hypokinesia of basal to apical inferior, basal to mid inferoseptal wall. Euvolemic currently. Continue with metoprolol succinate. Hold off on starting spironolactone for now. Holding off on diuretics or IV fluids. (5) Hx of CABG: Denies any chest pain. Continue with aspirin, statin. (6) Atrial fibrillation: Telemetry. Rate controlled. Continue with metoprolol. Anticoagulation once okay with podiatry. (7) Pacemaker: Attestations Medical Necessity Statement*: Requires further hospitalization for management of acute osteomyelitis of left hip.in patient with possible peripheral artery disease, atrial fibrillation congestive heart failure Time Spent in Patient Care: Greater than 35 minutes Coding Level of Care Code Acute Store Stock Help for Latonia [facility] Diagnoses Acute osteomyelitis of left calcaneus M86.172 Decubitus ulcer L89.90 Peripheral arterial disease I73.9 CHF (congestive heart failure) I50.9 Hx of CABG Z95.1 Atrial fibrillation I48.91 Pacemaker Z95.0
[2022-05-03 12:30] LABS: Digoxin < 0.3 ng/mL (0.6-1.2)
[2022-05-03] MEDS: HYDROcodone-acetaminophen 5-325 mg Tablet 1 TAB PO ×2 (16:15→20:53)
[2022-05-03] MEDS: cyclobenzaprine 10 mg Tablet 5 MG PO (17:04)
[2022-05-03] MEDS: sodium chloride 0.9% 1,000 ML 50 ML IV (17:06)
[2022-05-03] MEDS: morphine 4 mg/mL SDV 1 mL 2 MG IVP (19:03)
--- NOTE | 2022-05-03 19:07 | PC.NURSE ---
PAIN Pt c/o severe pain in left foot with shift change report. Stated now willing to take the Morphine. RN medicated with IV Morphine. Left leg elevated on pillows with heel off bed. Wound vac in place
[2022-05-03] MEDS: enoxaparin 40 mg/0.4 mL Syringe SUBCUT (21:54)
[2022-05-03] MEDS: vancomycin 1,000 MG in sodium chloride 0.9% 250 ML 250 MG IV (23:05)
[2022-05-04] VITALS (10 sets, daily range): BP systolic 89–102; BP diastolic 55–66; PULSE 76–82; RESP 16–18; TEMP 36.4–36.6; O2SAT 91–95
[2022-05-04] MEDS: piperacillin-tazobactam 3.375 GM in sodium chloride 0.9% (plus) 50 ML IV ×3 (00:43→17:09)
[2022-05-04] MEDS: HYDROcodone-acetaminophen 5-325 mg Tablet 1 TAB PO ×5 (01:33→23:44)
[2022-05-04 02:36] LABS: Basophils # 0.1 10^3/uL (0.0-0.1); Basophils % 0.8 %; Eosinophils # 0.2 10^3/uL (0.0-0.8); Eosinophils % 1.7 %; Hematocrit 37.7 % (42.0-52.0); Hemoglobin 11.6 g/dL (11.7-16.6); Lymphocytes # 1.8 10^3/uL (0.8-4.8); Mean Corpuscular HGB Conc 30.8 g/dL (30.0-36.0); Mean Corpuscular Hemoglobin 27.8 pg (28.0-34.0); Mean Corpuscular Volume 90.2 fl (80-94); Mean Platelet Volume 11.6 fL (7.4-10.4); Monocytes # 1.3 10^3/uL (0.2-0.9); Monocytes % 12.4 %; Neutrophils # 7.08 10^3/uL (1.8-7.7); Neutrophils % 67.8 %; Nucleated Red Blood Cells % 0 %; Platelet Count 309 10^3/cmm (130-400); Red Blood Count 4.18 10^6/uL (4.1-5.3); Red Cell Distribution Width 16.1 % (12.1-15.1); White Blood Count 10.4 10^3/uL (4.0-10.0)
[2022-05-04 02:53] LABS: Estmated Average Glucose 97
[2022-05-04 02:55] LABS: Alanine Aminotransferase < 5 U/L (0-41); Albumin Level 2.7 g/dL (3.5-5.2); Alkaline Phosphatase 145 U/L (40-130); Anion Gap 10.8 (5-19); Aspartate Amino Transferase 13 U/L (0-40); Blood Urea Nitrogen 14 mg/dL (8-23); Calcium 8.2 mg/dL (8.5-10.5); Carbon Dioxide 25 mmol/L (22-29); Chloride 103 mmol/L (98-107); Chol HDL Ratio 2.28 mg/dL (1.0-5.00); Cholesterol 107 mg/dL (0-200); Glucose 127 mg/dL (65-115); HDL Cholesterol 47 mg/dL (60-100); LDL Cholesterol Calculated 50 mg/dL (50-129); Osmolality Calculated 282 mOsm/kg (285-295); Potassium 3.8 mmol/L (3.5-5.1); Sodium 135 mmol/L (136-145); Total Bilirubin 0.6 mg/dL (0.15-1.2); Total Protein 5.7 g/dL (6.6-8.7); Triglycerides 50 mg/dL (0-150); VLDL Cholestrol Calculation 10 mg/dL (0-30)
--- NOTE | 2022-05-04 06:05 | PC.NURSE ---
PAIN CONTROL Have been able to control pts pain with po Hydrocodone since first of shift when required the IV Morphine. Says sure works better to keep pain from getting out of hand. Has kept L leg elevated on pillows with heel off bed. Wound vac functioning well. Dressing C&D. IV fluids infusing at 50ml/hr rate and receiving IV antibiotics
[2022-05-04] MEDS: digoxin 125 mcg Tablet PO (10:18)
[2022-05-04] MEDS: metoprolol succinate ER (24 HR) 25 mg Tablet PO (10:19)
[2022-05-04] MEDS: atorvastatin 40 mg Tablet 20 MG PO (10:19)
[2022-05-04] MEDS: levothyroxine 137 mcg Tablet PO (10:20)
[2022-05-04] MEDS: pantoprazole DR 40 mg Tablet PO (10:20)
--- NOTE | 2022-05-04 11:18 | P.PN_ITS ---
Subjective Subjective: Patient seen bedside this morning. States pain is being managed with medication, taking hydrocodone 5/325 mg. Denies any acute events overnight. He is 1 day status post incision and debridement left heel with application of wound VAC. Patient denies any subjective nausea, vomiting, fever, chills, shortness of breath or chest pain. Vitals/I&O/Wt Last Vital Signs Temp 97.7 F 05/04/22 07:37 Pulse 78 05/04/22 07:37 Resp 16 05/04/22 07:37 BP 99/55 05/04/22 07:37 Pulse Ox 91 05/04/22 07:37 O2 Del Method 05/04/22 07:37 05/03/22 05/04/22 05/04/22 22:59 06:59 14:59 Intake Total 1257.5 / 1257.5 420 / 1677.5 120 / 120 Output Total 200 / 210 150 / 360 Balance 1057.5 / 1047.5 270 / 1317.5 120 / 120 Weight last 48 hrs Weight 137 lb 9.6 oz Weight 150 lb Physical Exam Narrative: GENERAL: Patient is alert and oriented ?3 and in no acute dis tress.? The following is a focused bilateral lower extremity exam.? Accompanied by family. VASCULAR: Dorsalis pedis diminished, posterior tibial arteries diminished.? Capillary refill time less than 5 seconds to the distal hallux bilaterally. Calf is supple and nontender proximally and distally.? Decreased pedal hair growth. NEUROLOGICAL: Protective sensation diminished to light touch. DERMATOLOGICAL: Wound VAC intact with excellent seal, no leaks. Set at 125 mm of negative pressure continuous. No strikethrough bleeding. No proximal lymphangitic streaking or cellulitis. MUSCULOSKELETAL: Tenderness to palpation exquisitely to the left posterior heel.? No crepitus with soft tissue palpation. 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 1 day status postsurgical debridement and application of wound VAC left lower extremity stage IV decubitus heel ulcer. Exposed bone * Left foot x-rays performed in podiatry clinic, negative for bony destruction, cortical irregularity or foreign body, no soft tissue emphysema * Aerobic and anaerobic wound cultures taken of the left heel in podiatry clinic sent to microbiology for gram stain, culture and sensitivity * Will require multidisciplinary approach for limb salvage, recommend vascular consult, recommend infectious disease consult. * Surgical debridement and application of wound VAC performed 05/03/2022 doing well postoperatively. * Continue empiric IV antibiotics, discharge planning once cultures are finalized and antibiotic selection * Will require wound VAC at discharge, will continue this outpatient. 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
[2022-05-04 11:57] LABS: Specific Gravity, Urine 1.025 (1.005-1.030); Urine Appearance Cloudy (CLEAR); Urine Color Dark Yellow (Yellow); pH Urine 5 (5-7)
[2022-05-04 11:58] LABS: Add Urine Culture? No; Amorphous Sediment Urine 3+ /hpf; Bacteria Urine 1+ /hpf; Bilirubin Urine 1+ (Negative); Blood Urine Neg (Negative); Glucose Urine UA Norm (Normal); Ketones Urine 1+ (Negative); Leukocyte Esterase Urine Negative (Negative); Nitrate Urine Negative (Negative); Protein Urine Trace (Negative); Urobilinogen Urine Norm (Negative)
[2022-05-04] MEDS: sodium chloride 0.9% 1,000 ML 50 ML IV (12:56)
[2022-05-04] MEDS: morphine 4 mg/mL SDV 1 mL 2 MG IVP (12:57)
--- NOTE | 2022-05-04 13:33 | P.PN_ITS ---
Subjective Subjective: seen this am. no acute events overnight awaiting cultures resting comfortably however complains of ankle pain and foot pain at surgical site wound vac in place Vitals/I&O/Wt Last Vital Signs Temp 97.9 F 05/04/22 11:31 Pulse 82 05/04/22 11:31 Resp 16 05/04/22 12:57 BP 94/55 05/04/22 11:31 Pulse Ox 95 05/04/22 11:31 O2 Del Method 05/04/22 11:31 05/03/22 05/04/22 05/04/22 22:59 06:59 14:59 Intake Total 1257.5 / 1257.5 420 / 1677.5 1111.666 / 1111.666 Output Total 200 / 210 150 / 360 200 / 200 Balance 1057.5 / 1047.5 270 / 1317.5 911.666 / 911.666 Weight last 48 hrs Weight 62.414 kg Weight 68.039 kg Physical Exam Narrative: EXAM NARRATIVE: General: No acute distress, AO x3, NC oxygen supplementation, pallor present, slightly dehydrated HEENT: NC/AT , EOMI Chest: CTA B/l No w,r,c CVS: S1-S2 irregularly irregular, no murmurs, Abdomen: Soft, nontender, bowel sounds present, morbidly obese Neuro: No focal deficits, no facial deformity, AO x3, power 5/5 in all limbs Extremities: Left leg surgically bandaged with wound VAC in place Data : 05/04/22 01:20 05/04/22 01:20 Micro: Microbiology 05/03/22 08:36 Gram Stain - Final Other Source Wound Culture - Preliminary 05/02/22 19:10 Blood Culture - Preliminary Blood NEGATIVE TO DATE 05/02/22 19:10 Blood Culture - Preliminary Blood NEGATIVE TO DATE A&P Assessment and plan (1) Acute osteomyelitis of left calcaneus: Post debridement day 1. Appreciate Dr. Saxena's recommendation. Wound VAC in place. Continue with empiric antibiotics. Follow-up over cultures, blood cultures. Outpatient wound cultures growing gram-negative rods. We will continue to follow cultures. Most likely patient will need IV antibiotics for 6 weeks. Discussed with the patient regarding the same and possibility of PICC line placement. Patient verbalized understanding. Anticoagulation, physical therapy, weightbearing as per podiatry. (2) Decubitus ulcer: (3) Peripheral arterial disease: Awaiting results of arterial duplex. Check A1c, lipid panel. Continue with statin. Start on aspirin 81 mg daily. (4) CHF (congestive heart failure): No old echocardiogram in the chart. Echocardiogram done during this hospitalization shows EF 35%, hypokinesia of basal to apical inferior, basal to mid inferoseptal wall. Euvolemic currently. Continue with metoprolol succinate. Hold off on starting spironolactone for now. Holding off on diuretics or IV fluids. (5) Hx of CABG: Denies any chest pain. Continue with aspirin, statin. (6) Atrial fibrillation: Telemetry. Rate controlled. Continue with metoprolol. Anticoagulation once okay with podiatry. (7) Pacemaker: Plan [facility] recommends the following: * Will require multidisciplinary approach for limb salvage, recommend vascular consult, recommend infectious disease consult. * Surgical debridement and application of wound VAC performed 05/03/2022 doing well postoperatively. * Continue empiric IV antibiotics, discharge planning once cultures are finalized and antibiotic selection * Will require wound VAC at discharge, will continue this outpatient. * 6 weeks ABX. * Await final cultures before deciding Attestations Medical Necessity Statement*: Decubitus heel ulcer with infection Coding Level of Care Code Acute Animal Chiropractor for [facility] Diagnoses Acute osteomyelitis of left calcaneus M86.172 Decubitus ulcer L89.90 Peripheral arterial disease I73.9 CHF (congestive heart failure) I50.9 Hx of CABG Z95.1 Atrial fibrillation I48.91 Pacemaker Z95.0
[2022-05-04] MEDS: acetaminophen 325 mg Tablet 650 MG PO (21:51)
[2022-05-04] MEDS: enoxaparin 40 mg/0.4 mL Syringe SUBCUT (21:51)
[2022-05-04] MEDS: vancomycin 1,000 MG in sodium chloride 0.9% 250 ML 250 MG IV (23:06)
[2022-05-05] VITALS (11 sets, daily range): BP systolic 94–131; BP diastolic 57–78; PULSE 80–87; RESP 12–18; TEMP 36.3–36.6; O2SAT 87–96
[2022-05-05] MEDS: piperacillin-tazobactam 3.375 GM in sodium chloride 0.9% (plus) 50 ML IV ×2 (01:24→07:58)
[2022-05-05 03:13] LABS: Basophils # 0.1 10^3/uL (0.0-0.1); Basophils % 0.8 %; Eosinophils # 0.4 10^3/uL (0.0-0.8); Eosinophils % 4.5 %; Hematocrit 35.9 % (42.0-52.0); Hemoglobin 10.8 g/dL (11.7-16.6); Lymphocytes # 1.6 10^3/uL (0.8-4.8); Lymphocytes % 19.8 %; Mean Corpuscular HGB Conc 30.1 g/dL (30.0-36.0); Mean Corpuscular Hemoglobin 27.8 pg (28.0-34.0); Mean Corpuscular Volume 92.5 fl (80-94); Mean Platelet Volume 11.7 fL (7.4-10.4); Monocytes % 12.3 %; Neutrophils # 4.86 10^3/uL (1.8-7.7); Neutrophils % 62.1 %; Nucleated Red Blood Cells % 0 %; Platelet Count 261 10^3/cmm (130-400); Red Blood Count 3.88 10^6/uL (4.1-5.3); Red Cell Distribution Width 16.1 % (12.1-15.1); White Blood Count 7.8 10^3/uL (4.0-10.0)
[2022-05-05 03:42] LABS: Anion Gap 10.5 (5-19); Blood Urea Nitrogen 14 mg/dL (8-23); Calcium 8.2 mg/dL (8.5-10.5); Carbon Dioxide 24 mmol/L (22-29); Chloride 104 mmol/L (98-107); Glucose 85 mg/dL (65-115); Osmolality Calculated 278 mOsm/kg (285-295); Potassium 4.5 mmol/L (3.5-5.1); Sodium 134 mmol/L (136-145)
[2022-05-05] MEDS: HYDROcodone-acetaminophen 5-325 mg Tablet 1 TAB PO (07:58)
[2022-05-05] MEDS: digoxin 125 mcg Tablet PO (07:59)
[2022-05-05] MEDS: atorvastatin 40 mg Tablet 20 MG PO (07:59)
[2022-05-05] MEDS: pantoprazole DR 40 mg Tablet PO (07:59)
[2022-05-05] MEDS: metoprolol succinate ER (24 HR) 25 mg Tablet PO (07:59)
[2022-05-05] MEDS: levothyroxine 137 mcg Tablet PO (08:00)
--- NOTE | 2022-05-05 10:11 | PC.SOCIAL ---
IMM update IMM updated with patient. Verbalized an understanding. Copy Pg 2 provided. Initialled, dated, timed, and placed in chart.
[2022-05-05] MEDS: morphine 4 mg/mL SDV 1 mL 5 MG IVP (11:29)
[2022-05-05] MEDS: sodium chloride 0.9% 1,000 ML 50 ML IV (11:30)
--- NOTE | 2022-05-05 12:39 | P.PN_ITS ---
Subjective Subjective: Patient seen bedside. Denies any acute events overnight. Status post incision and debridement with application of wound VAC, left heel. Patient denies any subjective nausea, vomiting, fever, chills, shortness of breath or chest pain. Vitals/I&O/Wt Last Vital Signs Temp 97.4 F L 05/05/22 11:35 Pulse 80 05/05/22 11:35 Resp 16 05/05/22 11:35 BP 131/75 05/05/22 11:35 Pulse Ox 94 05/05/22 11:35 O2 Del Method 05/05/22 11:35 05/04/22 05/05/22 05/05/22 22:59 06:59 14:59 Intake Total 450 / 1611.666 500 / 2111.666 1360 / 1360 Output Total 150 / 350 Balance 300 / 1261.666 500 / 8640.758 5155 / 1360 Physical Exam Narrative: GENERAL: Patient is alert and oriented ?3 and in no acute distress.? The following is a focused bilateral lower extremity exam.? Accompanied by family. VASCULAR: Dorsalis pedis diminished, posterior tibial arteries diminished.? Capillary refill time less than 5 seconds to the distal hallux bilaterally. Calf is supple and nontender proximally and distally.? Decreased pedal hair growth. NEUROLOGICAL: Protective sensation diminished to light touch. DERMATOLOGICAL: Wound VAC intact with excellent seal, no leaks. Set at 125 mm of negative pressure continuous. No strikethrough bleeding. No proximal lymphangitic streaking or cellulitis. MUSCULOSKELETAL: Tenderness to palpation exquisitely to the left posterior heel.? No crepitus with soft tissue palpation. 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 Exposed bone * Surgical debridement and application of wound VAC performed 05/03/2022 doing well postoperatively. * Weightbearing status: Toe-touch for transfers * Wound VAC dressing changed at today's visit, improved wound base, pushed 5 mg of morphine for pain control * Planning on discharge with PICC line, 2 g of Rocephin infused every 24 hours, home health set up * At home wound VAC pending, home health to perform wound VAC dressing change 3X weekly * I prescribed hydrocodone 7.5/325 mg to be taken 1 tablet 1 hour prior to wound VAC dressing change for pain control. * Okay for discharge from podiatry standpoint. 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
--- NOTE | 2022-05-05 15:55 | P.PN_ITS ---
Subjective Subjective: Seen this morning. Patient is getting his wound VAC replaced by podiatry at this time when seen. Patient excited to go home with home health. PICC line will be placed. Vitals/I&O/Wt Last Vital Signs Temp 97.4 F L 05/05/22 15:18 Pulse 87 05/05/22 15:18 Resp 18 05/05/22 15:18 BP 123/75 05/05/22 15:18 Pulse Ox 96 05/05/22 15:18 O2 Del Method 05/05/22 15:18 05/05/22 05/05/22 05/05/22 06:59 14:59 22:59 Intake Total 500 / 2111.666 1720 / 1720 Balance 500 / 0026.581 1166 / 1720 Physical Exam 2 Narrative: EXAM NARRATIVE: General: No acute distress, AO x3, NC oxygen supplementation, pallor present, slightly dehydrated HEENT: NC/AT , EOMI Chest: CTA B/l No w,r,c CVS: S1-S2 irregularly irregular, no murmurs, Abdomen: Soft, nontender, bowel sounds present, morbidly obese Neuro: No focal deficits, no facial deformity, AO x3, Extremities: Left leg surgically bandaged with wound VAC in place Data : 05/05/22 02:34 05/05/22 02:34 Micro: Microbiology 05/03/22 08:36 Gram Stain - Final Other Source Wound Culture - Preliminary Gram Negative Rods 05/03/22 17:48 MRSA Culture - Final Nose A&P Assessment and plan (1) Acute osteomyelitis of left calcaneus: Post debridement day 2. Appreciate Dr. Saxena's recommendation. Wound VAC in place. Continue with empiric antibiotics. Follow-up over cultures, blood cultures. Outpatient wound cultures growing gram-negative rods. We will continue to fo llow cultures. We will plan to place PICC line for the patient. We will send patient home on ceftriaxone 2 g every 24 hours for 4 weeks to begin with. He will then need to follow-up with ID physician outpatient to decide on course of antibiotics. Patient will be leaving with a wound VAC. Anticoagulation, physical therapy, weightbearing as per podiatry. (2) Decubitus ulcer: (3) Peripheral arterial disease: Awaiting results of arterial duplex. Check A1c, lipid panel. Continue with statin. Start on aspirin 81 mg daily. (4) CHF (congestive heart failure): No old echocardiogram in the chart. Echocardiogram done during this hospitalization shows EF 35%, hypokinesia of basal to apical inferior, basal to mid inferoseptal wall. Euvolemic currently. Continue with metoprolol succinate. Hold off on restarting spironolactone at this time. (5) Hx of CABG: Denies any chest pain. Continue with aspirin, statin. (6) Atrial fibrillation: Telemetry. Rate controlled. Continue with metoprolol. Anticoagulation once okay with podiatry. (7) Pacemaker: Plan [facility] recommends the following: * Will require multidisciplinary approach for limb salvage, recommend vascular consult, recommend infectious disease consult. * Surgical debridement and application of wound VAC performed 05/03/2022 doing well postoperatively. * Continue empiric IV antibiotics, discharge planning once cultures are finalized and antibiotic selection * Will require wound VAC at discharge, will continue this outpatient. * We will plan to place PICC line for the patient. We will send patient home on ceftriaxone 2 g every 24 hours for 4 weeks to begin with. He will then need to follow-up with ID physician outpatient to decide on course of antibiotics. Patient will be leaving with a wound VAC. * Attestations Medical Necessity Statement*: Plan to send patient home with home health ralph reed with PICC line placed. Coding Level of Care Code Acute Inside Sales Person for [facility] Diagnoses Acute osteomyelitis of left calcaneus M86.172 Decubitus ulcer L89.90 Peripheral arterial disease I73.9 CHF (congestive heart failure) I50.9 Hx of CABG Z95.1 Atrial fibrillation I48.91 Pacemaker Z95.0
[2022-05-05] MEDS: cefTRIAXone 2,000 MG in sodium chloride 0.9% (plus) 50 ML 100 MG IV (18:20)
[2022-05-05] MEDS: ondansetron 2 mg/ML SDV 2 mL 4 MG IVP (18:25)
[2022-05-05] MEDS: enoxaparin 40 mg/0.4 mL Syringe SUBCUT (21:56)
[2022-05-06] VITALS (8 sets, daily range): BP systolic 96–118; BP diastolic 52–73; PULSE 79–82; RESP 14–18; TEMP 36.4–37.1; O2SAT 88–94
[2022-05-06 03:28] LABS: Basophils # 0.1 10^3/uL (0.0-0.1); Basophils % 0.9 %; Eosinophils # 0.4 10^3/uL (0.0-0.8); Eosinophils % 4.4 %; Hematocrit 39.7 % (42.0-52.0); Lymphocytes # 1.4 10^3/uL (0.8-4.8); Lymphocytes % 17.5 %; Mean Corpuscular HGB Conc 30.2 g/dL (30.0-36.0); Mean Corpuscular Hemoglobin 27.8 pg (28.0-34.0); Mean Corpuscular Volume 92.1 fl (80-94); Mean Platelet Volume 10.9 fL (7.4-10.4); Monocytes # 1.1 10^3/uL (0.2-0.9); Monocytes % 13.7 %; Neutrophils # 5.14 10^3/uL (1.8-7.7); Nucleated Red Blood Cells % 0 %; Platelet Count 270 10^3/cmm (130-400); Red Blood Count 4.31 10^6/uL (4.1-5.3); Red Cell Distribution Width 15.9 % (12.1-15.1); White Blood Count 8.2 10^3/uL (4.0-10.0)
[2022-05-06 03:51] LABS: Anion Gap 11.9 (5-19); Blood Urea Nitrogen 10 mg/dL (8-23); Calcium 8.4 mg/dL (8.5-10.5); Carbon Dioxide 26 mmol/L (22-29); Chloride 104 mmol/L (98-107); Glucose 92 mg/dL (65-115); Magnesium 1.7 mg/dL (1.7-2.3); Osmolality Calculated 283 mOsm/kg (285-295); Potassium 4.9 mmol/L (3.5-5.1); Sodium 137 mmol/L (136-145)
--- NOTE | 2022-05-06 07:19 | XR_ITS ---
WS: [id number] Portable AP upright chest, 05/06/2022 Clinical Data: Post PICC insertion Comparison: Portable chest, 05/03/2022 Findings: The right PICC line enters the superior vena cava and probably ends in the midportion of th e superior vena cava. The end of the PICC line is obscured by the pacemaker wires. The heart, lungs a nd pacemaker show no change. Monitor leads are on the chest wall. XR/XR chest 1V portable [id number] Impression: Satisfactory insertion of right PICC line.
--- NOTE | 2022-05-06 07:50 | PC.NURSE ---
bedside report given to ELISE calabrese
[2022-05-06] MEDS: levothyroxine 137 mcg Tablet PO (09:41)
[2022-05-06] MEDS: metoprolol succinate ER (24 HR) 25 mg Tablet PO (09:41)
[2022-05-06] MEDS: atorvastatin 40 mg Tablet 20 MG PO (09:41)
[2022-05-06] MEDS: pantoprazole DR 40 mg Tablet PO (09:41)
[2022-05-06] MEDS: digoxin 125 mcg Tablet PO (09:42)
--- NOTE | 2022-05-06 10:05 | PC.CHAP ---
Pastoral Care Encounter/Spiritual Assessment Type of Contact [] Declined carpenter inspector visit [] Patient/Family/Request visit [] Outpatient visit [] Follow-up visit [] Physician referral [] Code/Alert [x] Routine visit [] Staff referral [] Actively dying [] Patient sleeping [] Family support [] [] Out of room [] Palliative care [] [] Receiving care in room [] Pre-surgical visit [] Trauma [] Long length of stay [] ICU visit [] Other: Relational/Emotional Strength [] Patient feels connected with others/family/visitors/staff [] Distress [] Loneliness/isolation [] Abandonment Spirituality of Patient [x] Person of Priscilla [x] Attends Jew of their Priscilla [x] Believes in Prayer [] Reads Bible or Druze materials [] There are Spiritual issues to be addressed Scrum Master Interventions [x] Prayer [x] Active listening [x] Non-anxious presence [] Spiritual/emotional support [] Crisis/trauma care [] Spiritual counseling [] Bereavement support [] Provided bereavement packet [] Provided Bible/devotional materials [] Provided toy/stuffed animal, coloring book to patient or family member [] Provided Communion [] Anointing/[place] [] Salvation [x] Completed spiritual assessment [] Other: Impact on Illness or Injury [] Angry [] Fearful [] Anxious [] Often cries [] Exhaustion [] Unable to work [] Unable to attend baptism [] Unable to walk/stand [] Unable to read [] Unable to drive [] Unable to eat/drink [] Unable to sleep [] Unable to be with family [] Patient intubated [] Other: Summary was present with Pt. They have been for 56 years. Has numerous children and grandchildren. Time spent with patient 15m
--- NOTE | 2022-05-06 14:39 | PM.PN ---
Subjective Subjective: no acute events overnight Vitals/I&O/Wt Last Vital Signs Temp 97.7 F 05/06/22 08:00 Pulse 80 05/06/22 11:24 Resp 18 05/06/22 11:24 BP 118/73 05/06/22 11:24 Pulse Ox 94 05/06/22 11:24 O2 Del Method 05/06/22 11:24 05/05/22 05/06/22 05/06/22 22:59 06:59 14:59 Intake Total 220 / 1940 368 / 2308 360 / 360 Output Total 600 / 600 500 / 1100 Balance -380 / 1340 -132 / 1208 360 / 360 Physical Exam Narrative: EXAM NARRATIVE: General: No acute distress, AO x3, HEENT: NC/AT , EOMI Chest: CTA B/l No w,r,c CVS: S1-S2 irregularly irregular, no murmurs, Abdomen: Soft, nontender, bowel sounds present, morbidly obese Neuro: No focal deficits, no facial deformity, AO x3, Extremities: Left leg surgically bandaged with wound VAC in place Data : 05/06/22 03:17 05/06/22 03:17 Micro: Microbiology 05/03/22 08:36 Gram Stain - Final Other Source Wound Culture - Preliminary Gram Negative Rods A&P Assessment and plan (1) Acute osteomyelitis of left calcaneus: Post debridement day 2. Appreciate Dr. Saxena's recommendation. Wound VAC in place. Continue with empiric antibiotics. Follow-up over cultures, blood cultures. Outpatient wound cultures growing gram-negative rods. We will continue to follow cultures. We will plan to place PICC line for the patient. We will send patient home on ceftriaxone 2 g every 24 hours for 6 weeks to begin with. He will then need to follow-up with ID physician outpatient to decide on course of antibiotics. Patient will be leaving with a wound VAC. Anticoagulation, physical therapy, weightbearing as per podiatry. (2) Decubitus ulcer: (3) Peripheral arterial disease: Awaiting results of arterial duplex. Check A1c, lipid panel. Continue with statin. Start on aspirin 81 mg daily. (4) CHF (congestive heart failure): No old echocardiogram in the chart. Echocardiogram done during this hospitalization shows EF 35%, hypokinesia of basal to apical inferior, basal to mid inferoseptal wall. Euvolemic currently. Continue with metoprolol succinate. Hold off on restarting spironolactone at this time. (5) Hx of CABG: Denies any chest pain. Continue with aspirin, statin. (6) Atrial fibrillation: Telemetry. Rate controlled. Continue with metoprolol. Anticoagulation once okay with podiatry. (7) Pacemaker: Plan [facility] recommends the following: Will require multidisciplinary approach for limb salvage, recommend vascular consult, recommend infectious disease consult. Surgical debridement and application of wound VAC performed 05/03/2022 doing well postoperatively. Continue empiric IV antibiotics, discharge planning once cultures are finalized and antibiotic selection Will require wound VAC at discharge, will continue this outpatient. We will plan to place PICC line for the patient. We will send patient home on ceftriaxone 2 g every 24 hours for 4 weeks to begin with. He will then need to follow-up with ID physician outpatient to decide on course of antibiotics. Patient will be leaving with a wound VAC. Attestations Medical Necessity Statement*: pending placement Coding Level of Care Code Acute Molecular Modeler for [facility] Diagnoses Acute osteomyelitis of left calcaneus M86.172 Decubitus ulcer L89.90 Peripheral arterial disease I73.9 CHF (congestive heart failure) I50.9 Hx of CABG Z95.1 Atrial fibrillation I48.91 Pacemaker Z95.0
[2022-05-06] MEDS: cefTRIAXone 2,000 MG in sodium chloride 0.9% (plus) 50 ML 100 MG IV (16:54)
[2022-05-06] MEDS: sodium chloride 0.9% 1,000 ML 50 ML IV (19:17)
[2022-05-06] MEDS: HYDROcodone-acetaminophen 5-325 mg Tablet 1 TAB PO (21:40)
[2022-05-06] MEDS: enoxaparin 40 mg/0.4 mL Syringe SUBCUT (21:41)
[2022-05-07] VITALS (7 sets, daily range): BP systolic 109–123; BP diastolic 56–78; PULSE 78–85; RESP 14–17; TEMP 36.4–36.8; O2SAT 91–97
[2022-05-07] MEDS: HYDROcodone-acetaminophen 5-325 mg Tablet 1 TAB PO (01:43)
[2022-05-07] MEDS: morphine 4 mg/mL SDV 1 mL 5 MG IVP (06:28)
--- NOTE | 2022-05-07 07:42 | P.PN_ITS ---
Subjective Subjective: Patient seen bedside this morning. Denies any acute events overnight. He is status post debridement of left heel wound date of operation 05/03/2022. He is hopeful to go home today. Vitals/I&O/Wt Last Vital Signs Temp 97.7 F 05/07/22 04:00 Pulse 80 05/07/22 06:00 Resp 17 05/07/22 06:28 BP 114/65 05/07/22 04:00 Pulse Ox 93 05/07/22 04:00 O2 Del Method 05/07/22 04:00 05/06/22 05/07/22 05/07/22 22:59 06:59 14:59 Intake Total 802 / 1162 Output Total 400 / 400 Balance 802 / 1162 -400 / 762 Physical Exam Narrative: GENERAL: Patient is alert and oriented ?3 and in no acute distress.? The following is a focused bilateral lower extremity exam.? A ccompanied by family. VASCULAR: Dorsalis pedis diminished, posterior tibial arteries diminished.? C apillary refill time less than 5 seconds to the distal hallux bilaterally. Calf is supple and nontender proximally and distally.? Decreased pedal hair growth. NEUROLOGICAL: Protective sensation diminished to light touch. DERMATOLOGICAL: Wound VAC intact with excellent seal, no leaks. Set at 125 mm of negative pressure continuous. No strikethrough bleeding. No proximal lymphangitic streaking or cellulitis. MUSCULOSKELETAL: Tenderness to palpation exquisitely to the left posterior heel.? No crepitus with soft tissue palpation. 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 Exposed bone * Surgical debridement and application of wound VAC performed 05/03/2022 doing well postoperatively. * Weightbearing status: Toe-touch for transfers * Wound VAC intact set at continuous 125 mmHg negative pressure, excellent seal, no leak. * Planning on discharge with PICC line, 2 g of Rocephin infused every 24 hours, home health set up * At home wound VAC pending, home health to perform wound VAC dressing change 3X weekly * I prescribed hydrocodone 7.5/325 mg to be taken 1 tablet 1 hour prior to wound VAC dressing change for pain control. * Okay for discharge from podiatry standpoint. * Follow-up with wound care clinic. 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
--- NOTE | 2022-05-07 08:31 | P.DS_ITS ---
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 His wound has been present for about a month now and is thought to be a pressure ulcer.? Patient recently had surgery for fracture of his left hip and during recovery he was fairly sedentary which resulted in a pressure ulcer over his left wound healed.? He had been following at the wound care clinic and was prescribed Zyvox, however it appears that the patient did not take it.? He was additionally prescribed ciprofloxacin recently from Dr. Morris's clinic but is uncertain if he has been taking it.? More recently his foul has had a malodorous discharge and in need of debridement because of which she is currently admitted to the hospital and is planned to go to the OR tomorrow morning.? It appears deep tissue cultures were taken at the clinic, however these are not currently available for review in the system. His medical comorbidities include hypertension, chronic smoking, history of CAD.? No complaints fever chills. Hospital Course Hospital Course Patient was admitted for left heel ulcer being sent from podiatry clinic. He had wound debridement done on 05/03/2022. He does have diagnosis of osteomyelitis. Debridement margins were not clean. Plan to discharge him on 6 weeks of IV antibiotics. We will place him on ceftriaxone 2 g every 24 hours. He is to follow-up with ID clinic outpatient for further management. During hospital stay patient did have an echo done which showed EF of 35% with some apical hypokinesia. I called his outpatient sewer system supervisor in [place] and discussed the findings. Patient had exact same echo findings in February 2022. Air Conditioner Installer Helper recommended to stop his digoxin at this point. Continue Coreg, Eliquis, Lasix, metoprolol, levothyroxine and atorvastatin. Patient recommended to follow-up with cardiology as an outpatient for further management and work- up. 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 Patient has been chest pain-free in has had no shortness of breath during hospital stay. He has ischemic cardiomyopathy and has declined a biventricular pacemaker in the past. Cardiology also expected to hold the spironolactone which I have done. Patient will be discharged home in stable condition with follow-up with podiatry, ID, cardiology. Wound VAC will be set up. Home health to take over care. He is being discharged home in stable condition. Physical Exam Narrative: EXAM NARRATIVE: General: No acute distress, AO x3, HEENT: NC/AT , EOMI Chest: CTA B/l No w,r,c CVS: S1-S2 irregularly irregular, no murmurs, Abdomen: Soft, nontender, bowel sounds present, morbidly obese Neuro: No focal deficits, no facial deformity, AO x3, Extremities: Left leg surgically bandaged with wound VAC in place Discharge Data Studies Completed and Pending Completed Studies During Hospitalization Category Date Time Status CXRP [XR chest 1V portable [id number]] Routine Exams 05/03/22 06:35 Completed CXRP [XR chest 1V portable [id number]] Routine Exams 05/06/22 07:19 Completed XR foot LT min 3V* [id number] Stat Exams 05/02/22 19:10 [place] [id number] Routine Ultrasound 05/03/22 06:43 [place] [id number] Routine Ultrasound 05/03/22 06:43 Completed CV. echo complete* [id number] Routine Ultrasound 05/03/22 06:35 Completed Pending at discharge Category Date Time Status Blood Culture Stat Lab 05/02/22 19:10 Results Radiology Impressions Foot X-Ray 05/02/22 19:10 IMPRESSION: No sign of osteomyelitis. Duplex Scan Lower Extremity Artery 05/03/22 06:43 IMPRESSION: Moderate atherosclerotic burden with monophasic waveform throughout without visualized stenosis suggesting more proximal/aortic iliac disease. No flow demonstrated in left dorsalis pedis artery. Ankle brachial index of 0.6 suggest claudication zone. Venous Duplex 05/03/22 06:43 IMPRESSION: No evidence of deep vein thrombosis. Chest X-Ray 05/06/22 07:19 Impression: Satisfactory insertion of right PICC line. Laboratory Results WBC 8.2 10^3/uL (4.0-10.0) 05/06/22 03:17 RBC 4.31 10^6/uL (4.1-5.3) 05/06/22 03:17 Hgb 12.0 g/dL (11.7-16.6) 05/06/22 03:17 Hct 39.7 % (42.0-52.0) L 05/06/22 03:17 MCV 92.1 fl (80-94) 05/06/22 03:17 MCH 27.8 pg (28.0-34.0) L 05/06/22 03:17 MCHC 30.2 g/dL (30.0-36.0) 05/06/22 03:17 RDW 15.9 % (12.1-15.1) H 05/06/22 03:17 Plt Count 270 10^3/cmm (130-400) 05/06/22 03:17 MPV 10.9 fL (7.4-10.4) H 05/06/22 03:17 Neut % (Auto) 63.0 % 05/06/22 03:17 Lymph % (Auto) 17.5 % 05/06/22 03:17 [place] % (Auto) 13.7 % 05/06/22 03:17 Eos % (Auto) 4.4 % 05/06/22 03:17 Baso % (Auto) 0.9 % 05/06/22 03:17 Neut # (Auto) 5.14 10^3/uL (1.8-7.7) 05/06/22 03:17 Lymph # (Auto) 1.4 10^3/uL (0.8-4.8) 05/06/22 03:17 [place] # (Auto) 1.1 10^3/uL (0.2-0.9) H 05/06/22 03:17 Eos # (Auto) 0.4 10^3/uL (0.0-0.8) 05/06/22 03:17 Baso # (Auto) 0.1 10^3/uL (0.0-0.1) 05/06/22 03:17 Nucleated RBC % (auto) 0 % 05/06/22 03:17 Nucleated RBCs # 0.0 /100WBC 05/06/22 03:17 Sodium 137 mmol/L (136-145) 05/06/22 03:17 Potassium 4.9 mmol/L (3.5-5.1) 05/06/22 03:17 Chloride 104 mmol/L (98-107) 05/06/22 03:17 Carbon Dioxide 26 mmol/L (22-29) 05/06/22 03:17 Anion Gap 11.9 (5-19) 05/06/22 03:17 BUN 10 mg/dL (8-23) 05/06/22 03:17 Creatinine 0.8 mg/dL (0.7-1.2) 05/06/22 03:17 GFR Calculation Not Reportable 05/06/22 03:17 Glucose 92 mg/dL (65-115) 05/06/22 03:17 Estimat Average Glucose 97 05/04/22 01:20 Hemoglobin A1c 5.0 % (4.0-6.0) 05/04/22 01:20 Calculated Osmolality 283 mOsm/kg (285-295) L 05/06/22 03:17 Lactic Acid 2.6 mmol/L (0.5-2.2) H 05/02/22 19:10 Lactic Acid (Sepsis) 1.4 mmol/L (0.5-2.2) 05/02/22 22:00 Calcium 8.4 mg/dL (8.5-10.5) L 05/06/22 03:17 Magnesium 1.7 mg/dL (1.7-2.3) 05/06/22 03:17 Iron 43 ug/dL (59-158) L 05/03/22 10:25 TIBC 180 mcg/dl 05/03/22 10:25 % Saturation 23.8 % (20-50) 05/03/22 10:25 Unsat Iron Binding 137 ug/dL (112-347) 05/03/22 10:25 Total Bilirubin 0.6 mg/dL (0.15-1.2) 05/04/22 01:20 AST 13 U/L (0-40) 05/04/22 01:20 ALT < 5 U/L (0-41) 05/04/22 01:20 Alkaline Phosphatase 145 U/L (40-130) H 05/04/22 01:20 C-Reactive Protein 6.4 mg/L (0.0-4.9) H 05/02/22 19:10 Total Protein 5.7 g/dL (6.6-8.7) L 05/04/22 01:20 Albumin 2.7 g/dL (3.5-5.2) L 05/04/22 01:20 Globulin 3.0 g/dL (1.3-4.6) 05/04/22 01:20 Triglycerides 50 mg/dL (0-150) 05/04/22 01:20 Cholesterol 107 mg/dL (0-200) 05/04/22 01:20 LDL Cholesterol, Calc 50 mg/dL (50-129) 05/04/22 01:20 Total VLDL Cholesterol 10 mg/dL (0-30) 05/04/22 01:20 HDL Cholesterol 47 mg/dL (60-100) L 05/04/22 01:20 LDL/HDL Ratio 1.19 RATIO (0.00-3.22) 05/02/22 19:10 Cholesterol/HDL Ratio 2.28 mg/dL (1.0-5.00) 05/04/22 01:20 Procalcitonin 0.09 ng/mL (0-0.5) 05/03/22 10:25 TSH 8.48 uIU/mL (0.27-4.20) H 05/03/22 10:25 Urine Color Dark yellow (Yellow) 05/04/22 11:30 Urine Appearance Cloudy (CLEAR) A 05/04/22 11:30 Urine pH 5 (5-7) 05/04/22 11:30 Ur Specific [place] 1.025 (1.005-1.030) 05/04/22 11:30 Urine Protein Trace (Negative) 05/04/22 11:30 Urine Glucose (UA) Norm (Normal) 05/04/22 11:30 Urine Ketones 1+ (Negative) H 05/04/22 11:30 Urine Blood Neg (Negative) 05/04/22 11:30 Urine Nitrate Negative (Negative) 05/04/22 11:30 Urine Bilirubin 1+ (Negative) H 05/04/22 11:30 Urine Urobilinogen Norm mg/dL (Negative) 05/04/22 11:30 Ur Leukocyte Esterase Negative (Negative) 05/04/22 11:30 Urine RBC None /hpf (0-2) 05/04/22 11:30 Urine WBC None /hpf (0-5) 05/04/22 11:30 Ur Squamous Epith Cells None /hpf (0-5) 05/04/22 11:30 Amorphous Sediment 3+ /hpf 05/04/22 11:30 Urine Bacteria 1+ /hpf (NONE) H 05/04/22 11:30 Digoxin < 0.3 ng/mL (0.6-1.2) L 05/03/22 10:25 Vitals Last Vital Signs Temp 98.0 F 05/07/22 08:00 Pulse 81 05/07/22 08:00 Resp 16 05/07/22 08:00 BP 123/78 05/07/22 08:00 Pulse Ox 91 05/07/22 08:00 O2 Del Method 05/07/22 04:00 Discharge Plan Discharge Patient Disposition: Home Health Service Condition: Stable Prescriptions: New hydrocodone-acetaminophen 7.5-325 mg tablet 1 tab PO DAILY PRN (Reason: pain) 7 Days Qty: 7 0RF Rx Instructions: Take 1 tablet 1 hour prior to wound VAC dressing change Continued furosemide 40 mg tablet 40 mg PO DAILY Qty: 30 0RF levothyroxine 137 mcg tablet 137 mcg PO DAILY Qty: 30 0RF carvedilol 6.25 mg tablet 6.25 mg PO BID Qty: 60 0RF atorvastatin 20 mg tablet 20 mg PO DAILY Qty: 30 0RF metoprolol succinate 25 mg tablet extended release 24 hr 25 mg PO DAILY Qty: 30 0RF Eliquis 5 mg tablet 5 mg PO BID Qty: 60 0RF Discontinued ciprofloxacin HCl 500 mg tablet 500 mg PO BID spironolactone 25 mg tablet 12.5 mg PO DAILY digoxin 125 mcg (0.125 mg) tablet 125 mcg PO DAILY Discharge Orders: Discharge Order (Routine); Ordered 05/07/22 Ordered By: Capri Flowers Referrals: [facility] [Other] Karlo Romero [Other] - 06/09/22 3:00 pm (Has an appointment June 09 @ 3pm but clinic will call patient if they can get him in sooner. ) [facility] [place] [facility] ([facility]) [Outside] Josse Morris DPM [Physician] - 05/25/22 8:30 am Penny Mijares [Referring] - (PLEASE CALL FOR APPOINTMENT WITH YOUR PRIMARY CARE CLINIC) [facility], [Staff Physician] - 05/07/22 10:45 am Chiquita Byrd MD [Hospitalist] - 2 weeks Discharge Diet: Cardiac Discharge Activity: Limit activity as instructed Patient Instructions: Hydrocodone/Acetaminophen (By mouth), Osteomyelitis (GEN), How to Care for Your PICC (Peripherally Inserted Central Catheter) (ED), How to Flush Your Child's PICC (Peripherally Inserted Central... (GEN), Opioid Safety, Wound Care (General) Activity Restrictions/Additional Instructions: PER DR. MORRIS, PLEASE CHANGE WOUND VAC DRESSING 3X/WEEK. Please follow up with cardiology at [place] Dr. Romero within 2 weeks of discharge. 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
[2022-05-07] MEDS: pantoprazole DR 40 mg Tablet PO (10:17)
[2022-05-07] MEDS: digoxin 125 mcg Tablet PO (10:17)
[2022-05-07] MEDS: levothyroxine 137 mcg Tablet PO (10:18)
[2022-05-07] MEDS: metoprolol succinate ER (24 HR) 25 mg Tablet PO (10:18)
[2022-05-07] MEDS: atorvastatin 40 mg Tablet 20 MG PO (10:18)
--- NOTE | 2022-05-07 11:51 | PC.SOCIAL ---
IMM Updated Updated pt on IMM. No questions voiced. Provided pt a copy. Initialed, dated, & timed copy in chart.
[2022-05-07] MEDS: cefTRIAXone 2,000 MG in sodium chloride 0.9% (plus) 50 ML 100 MG IV (12:02)
== END 2022-05-07 14:04 | disposition home health service (06) | DRG 503 ==
LOC: ER 21:00 → MEDSURG 21:01
PROVIDERS: Podiatrist Foot & Ankle Surgery; Student in an Organized Health Care Education/Training Program; Admitting Provider Student in an Organized Health Care Education/Training Program; Emergency Provider Nurse Practitioner Family; Visit Provider Internal Medicine
PROC: 0QBM0ZZ Excision of Left Tarsal, Open Approach (ICD-10-PCS; principal; 2022-05-03 08:00)
DX: M86.172 Other acute osteomyelitis, left ankle and foot (principal); L89.624 Pressure ulcer of left heel, stage 4; I50.22 Chronic systolic (congestive) heart failure; J44.9 Chronic obstructive pulmonary disease, unspecified; F17.200 Nicotine dependence, unspecified, uncomplicated; I11.0 Hypertensive heart disease with heart failure; Z86.718 Personal history of other venous thrombosis and embolism; I25.2 Old myocardial infarction; I25.10 Atherosclerotic heart disease of native coronary artery without angina pectoris; Z95.1 Presence of aortocoronary bypass graft; I48.91 Unspecified atrial fibrillation; I73.9 Peripheral vascular disease, unspecified; Z79.01 Long term (current) use of anticoagulants; I25.5 Ischemic cardiomyopathy
CPT/HCPCS: 36415; 36569; 71045; 73630; 80048; 80053; 80061; 80162; 81001; 83036; 83540; 83550; 83605; 83735; 84145; 84443; 85025; 86140; 87040; 87070; 87075; 87077; 87186; 87205; 87641; 93005; 93306; 93926; 93970; 94760; 96372; 99204; 99213; 99285; J0696; J1650; J2270; J2370; J2405; J2543; J2704; J3010; J3370; J3490; J7030; J7050

== ENCOUNTER 2022-05-11 18:50 | Outpatient (CLI) | payer MEDICARE, MEDICAID, SELFPAY ==
[2022-05-11 18:59] LABS: Basophils # 0.1 10^3/uL (0.0-0.1); Basophils % 0.6 %; Eosinophils # 0.1 10^3/uL (0.0-0.8); Eosinophils % 1.2 %; Hematocrit 39.2 % (42.0-52.0); Lymphocytes # 1.7 10^3/uL (0.8-4.8); Lymphocytes % 13.8 %; Mean Corpuscular HGB Conc 30.6 g/dL (30.0-36.0); Mean Corpuscular Hemoglobin 28.1 pg (28.0-34.0); Mean Corpuscular Volume 91.8 fl (80-94); Mean Platelet Volume 12.5 fL (7.4-10.4); Monocytes # 1.3 10^3/uL (0.2-0.9); Monocytes % 10.9 %; Neutrophils # 8.88 10^3/uL (1.8-7.7); Neutrophils % 73.1 %; Nucleated Red Blood Cells % 0 %; Platelet Count 335 10^3/cmm (130-400); Red Blood Count 4.27 10^6/uL (4.1-5.3); Red Cell Distribution Width 16.3 % (12.1-15.1); White Blood Count 12.1 10^3/uL (4.0-10.0)
[2022-05-11 19:20] LABS: Albumin Level 2.9 g/dL (3.5-5.2); Alkaline Phosphatase 158 U/L (40-130); Blood Urea Nitrogen 18 mg/dL (8-23); Globulin 3.9 g/dL (1.3-4.6); Total Bilirubin 0.5 mg/dL (0.15-1.2); Total Protein 6.8 g/dL (6.6-8.7)
[2022-05-11 19:23] LABS: Aspartate Amino Transferase 26 U/L (0-40)
[2022-05-11 19:24] LABS: Alanine Aminotransferase 10 U/L (0-41)
== END 2022-05-11 18:51 | disposition home or self-care (01) ==
LOC: LAB 18:51
PROVIDERS: Visit Provider Student in an Organized Health Care Education/Training Program
DX: M86.172 Other acute osteomyelitis, left ankle and foot (principal)
CPT/HCPCS: 80076; 82565; 84520; 85025

== ENCOUNTER → 2022-05-12 12:55 | Outpatient (BNVA) | payer MEDICARE, MEDICAID, SELFPAY | PROVIDERS: Visit Provider Nurse Practitioner Family | DX: I96 Gangrene, not elsewhere classified (principal); L89.620 Pressure ulcer of left heel, unstageable | CPT/HCPCS: 11042; 97605 ==

== ENCOUNTER 2022-05-18 08:26 | Outpatient (CLI) | payer MEDICARE, MEDICAID, SELFPAY ==
[2022-05-19 08:50] LABS: Basophils # 0.1 10^3/uL (0.0-0.1); Eosinophils # 0.4 10^3/uL (0.0-0.8); Eosinophils % 4.1 %; Hematocrit 38.7 % (42.0-52.0); Hemoglobin 11.5 g/dL (11.7-16.6); Lymphocytes # 1.8 10^3/uL (0.8-4.8); Mean Corpuscular HGB Conc 29.7 g/dL (30.0-36.0); Mean Corpuscular Volume 94.2 fl (80-94); Mean Platelet Volume 11.3 fL (7.4-10.4); Monocytes # 0.8 10^3/uL (0.2-0.9); Monocytes % 9.4 %; Neutrophils # 5.54 10^3/uL (1.8-7.7); Neutrophils % 64.2 %; Nucleated Red Blood Cells % 0 %; Platelet Count 395 10^3/cmm (130-400); Red Blood Count 4.11 10^6/uL (4.1-5.3); Red Cell Distribution Width 16.1 % (12.1-15.1); White Blood Count 8.6 10^3/uL (4.0-10.0)
[2022-05-19 09:49] LABS: Albumin Level 2.8 g/dL (3.5-5.2); Alkaline Phosphatase 163 U/L (40-130); Blood Urea Nitrogen 17 mg/dL (8-23); Total Bilirubin 0.2 mg/dL (0.15-1.2); Total Protein 6.8 g/dL (6.6-8.7)
[2022-05-19 09:50] LABS: Alanine Aminotransferase 12 U/L (0-41); Aspartate Amino Transferase 23 U/L (0-40)
== END 2022-05-18 08:27 | disposition home or self-care (01) ==
LOC: RAD 05-19 08:33
PROVIDERS: Visit Provider Student in an Organized Health Care Education/Training Program
DX: M86.172 Other acute osteomyelitis, left ankle and foot (principal)
CPT/HCPCS: 80076; 82565; 84520; 85025

== ENCOUNTER → 2022-05-19 10:43 | Outpatient (BNVA) | payer MEDICARE, MEDICAID, SELFPAY | PROVIDERS: Visit Provider Nurse Practitioner Family | DX: I96 Gangrene, not elsewhere classified (principal); L89.620 Pressure ulcer of left heel, unstageable | CPT/HCPCS: 11042; 97605; A6237; A6250 ==

== ENCOUNTER 2022-05-25 17:23 | Outpatient (CLI) | payer MEDICARE, MEDICAID, SELFPAY ==
[2022-05-25 17:33] LABS: Basophils % 0.2 %; Eosinophils # 0.4 10^3/uL (0.0-0.8); Eosinophils % 1.9 %; Hematocrit 35.1 % (42.0-52.0); Hemoglobin 10.9 g/dL (11.7-16.6); Lymphocytes # 1.4 10^3/uL (0.8-4.8); Lymphocytes % 7.7 %; Mean Corpuscular HGB Conc 31.1 g/dL (30.0-36.0); Mean Corpuscular Hemoglobin 27.9 pg (28.0-34.0); Mean Corpuscular Volume 89.8 fl (80-94); Mean Platelet Volume 11.7 fL (7.4-10.4); Monocytes # 1.2 10^3/uL (0.2-0.9); Monocytes % 6.4 %; Neutrophils # 15.01 10^3/uL (1.8-7.7); Neutrophils % 83.3 %; Nucleated Red Blood Cells % 0 %; Platelet Count 351 10^3/cmm (130-400); Red Blood Count 3.91 10^6/uL (4.1-5.3); Red Cell Distribution Width 15.9 % (12.1-15.1)
[2022-05-25 17:59] LABS: Albumin Level 2.7 g/dL (3.5-5.2); Alkaline Phosphatase 165 U/L (40-130); Blood Urea Nitrogen 18 mg/dL (8-23); Globulin 3.5 g/dL (1.3-4.6); Total Bilirubin 0.3 mg/dL (0.15-1.2); Total Protein 6.2 g/dL (6.6-8.7)
[2022-05-25 18:00] LABS: Alanine Aminotransferase 7 U/L (0-41); Aspartate Amino Transferase 17 U/L (0-40)
== END 2022-05-25 17:24 | disposition home or self-care (01) ==
LOC: LAB 17:23
PROVIDERS: Visit Provider Student in an Organized Health Care Education/Training Program
DX: M86.172 Other acute osteomyelitis, left ankle and foot (principal); L97.423 Non-pressure chronic ulcer of left heel and midfoot with necrosis of muscle
CPT/HCPCS: 80076; 82565; 84520; 85025; 99213

== ENCOUNTER → 2022-05-26 14:15 | Outpatient (BNVA) | payer MEDICARE, MEDICAID, SELFPAY | PROVIDERS: Visit Provider Nurse Practitioner Family | DX: I96 Gangrene, not elsewhere classified (principal); L89.623 Pressure ulcer of left heel, stage 3 | CPT/HCPCS: 11042; 97605; A6237 ==

== ENCOUNTER 2022-05-29 01:00 | Outpatient (CLI) | payer MEDICARE, MEDICAID, SELFPAY | END 2022-05-29 23:00 | disposition home or self-care (01) | LOC: LAB 06-18 20:59 | PROVIDERS: Visit Provider Nurse Practitioner Family | DX: M86.172 Other acute osteomyelitis, left ankle and foot (principal) | CPT/HCPCS: 87070; 87075; 87077; 87186; 87205 ==

== ENCOUNTER 2022-06-01 16:56 | Outpatient (CLI) | payer MEDICARE, MEDICAID, SELFPAY ==
[2022-06-01 17:56] LABS: Basophils # 0.1 10^3/uL (0.0-0.1); Basophils % 0.3 %; Eosinophils # 0.2 10^3/uL (0.0-0.8); Eosinophils % 1.3 %; Hemoglobin 11.2 g/dL (11.7-16.6); Lymphocytes # 1.4 10^3/uL (0.8-4.8); Lymphocytes % 8.2 %; Mean Corpuscular HGB Conc 31.1 g/dL (30.0-36.0); Mean Corpuscular Hemoglobin 27.9 pg (28.0-34.0); Mean Corpuscular Volume 89.8 fl (80-94); Mean Platelet Volume 11.5 fL (7.4-10.4); Monocytes # 1.1 10^3/uL (0.2-0.9); Monocytes % 6.5 %; Neutrophils # 14.44 10^3/uL (1.8-7.7); Neutrophils % 83.2 %; Nucleated Red Blood Cells % 0 %; Platelet Count 322 10^3/cmm (130-400); Red Blood Count 4.01 10^6/uL (4.1-5.3); Red Cell Distribution Width 15.5 % (12.1-15.1); White Blood Count 17.4 10^3/uL (4.0-10.0)
[2022-06-01 18:06] LABS: Albumin Level 2.4 g/dL (3.5-5.2); Alkaline Phosphatase 200 U/L (40-130); Blood Urea Nitrogen 16 mg/dL (8-23); Globulin 3.6 g/dL (1.3-4.6); Total Bilirubin 0.3 mg/dL (0.15-1.2)
[2022-06-01 18:17] LABS: Alanine Aminotransferase 7 U/L (0-41); Aspartate Amino Transferase 19 U/L (0-40)
== END 2022-06-01 16:57 | disposition home or self-care (01) ==
LOC: LAB 16:56
PROVIDERS: Visit Provider Student in an Organized Health Care Education/Training Program
DX: M86.172 Other acute osteomyelitis, left ankle and foot (principal)
CPT/HCPCS: 80076; 82565; 84520; 85025

== ENCOUNTER → 2022-06-02 14:39 | Outpatient (BNVA) | payer MEDICARE, MEDICAID, SELFPAY | PROVIDERS: Visit Provider Nurse Practitioner Family | DX: I96 Gangrene, not elsewhere classified (principal); L89.623 Pressure ulcer of left heel, stage 3 | CPT/HCPCS: 97597; 97605; A6021; A6237; A6250 ==

== ENCOUNTER 2022-06-08 17:38 | Outpatient (CLI) | payer MEDICARE, MEDICAID, SELFPAY ==
[2022-06-08 17:55] LABS: Basophils # 0.1 10^3/uL (0.0-0.1); Basophils % 0.5 %; Eosinophils # 0.1 10^3/uL (0.0-0.8); Eosinophils % 0.9 %; Hematocrit 36.5 % (42.0-52.0); Hemoglobin 11.2 g/dL (11.7-16.6); Lymphocytes # 1.9 10^3/uL (0.8-4.8); Lymphocytes % 11.4 %; Mean Corpuscular HGB Conc 30.7 g/dL (30.0-36.0); Mean Corpuscular Hemoglobin 27.2 pg (28.0-34.0); Mean Corpuscular Volume 88.6 fl (80-94); Mean Platelet Volume 11.7 fL (7.4-10.4); Monocytes # 0.9 10^3/uL (0.2-0.9); Monocytes % 5.6 %; Neutrophils # 13.22 10^3/uL (1.8-7.7); Neutrophils % 80.9 %; Nucleated Red Blood Cells % 0 %; Platelet Count 351 10^3/cmm (130-400); Red Blood Count 4.12 10^6/uL (4.1-5.3); Red Cell Distribution Width 15.9 % (12.1-15.1); White Blood Count 16.3 10^3/uL (4.0-10.0)
[2022-06-08 18:20] LABS: Albumin Level 2.4 g/dL (3.5-5.2); Alkaline Phosphatase 230 U/L (40-130); Blood Urea Nitrogen 17 mg/dL (8-23); Globulin 3.2 g/dL (1.3-4.6); Total Bilirubin 0.4 mg/dL (0.15-1.2); Total Protein 5.6 g/dL (6.6-8.7)
[2022-06-08 18:45] LABS: Alanine Aminotransferase 9 U/L (0-41); Aspartate Amino Transferase 22 U/L (0-40)
== END 2022-06-08 17:39 | disposition home or self-care (01) ==
LOC: LAB 17:40
PROVIDERS: Visit Provider Student in an Organized Health Care Education/Training Program
DX: I96 Gangrene, not elsewhere classified (principal); L89.623 Pressure ulcer of left heel, stage 3; M86.172 Other acute osteomyelitis, left ankle and foot
CPT/HCPCS: 11042; 80076; 82565; 84520; 85025; 97605; A6237; A6250

== ENCOUNTER → 2022-06-15 15:14 | Outpatient (BNVA) | payer MEDICARE, MEDICAID, SELFPAY | PROVIDERS: Visit Provider Thoracic Surgery (Cardiothoracic Vascular Surgery) | DX: I96 Gangrene, not elsewhere classified (principal); L89.623 Pressure ulcer of left heel, stage 3 | CPT/HCPCS: 97597; 97605 ==

== ENCOUNTER 2022-06-16 21:44 | Outpatient (CLI) | payer MEDICARE, MEDICAID, SELFPAY ==
[2022-06-17 09:51] LABS: Basophils # 0.1 10^3/uL (0.0-0.1); Basophils % 0.5 %; Eosinophils # 0.1 10^3/uL (0.0-0.8); Hematocrit 36.1 % (42.0-52.0); Hemoglobin 10.9 g/dL (11.7-16.6); Lymphocytes # 1.7 10^3/uL (0.8-4.8); Lymphocytes % 13.6 %; Mean Corpuscular HGB Conc 30.2 g/dL (30.0-36.0); Mean Corpuscular Hemoglobin 27.3 pg (28.0-34.0); Mean Corpuscular Volume 90.5 fl (80-94); Mean Platelet Volume 11.9 fL (7.4-10.4); Monocytes # 0.4 10^3/uL (0.2-0.9); Monocytes % 3.1 %; Neutrophils # 10.29 10^3/uL (1.8-7.7); Neutrophils % 81.5 %; Nucleated Red Blood Cells % 0.2 %; Platelet Count 155 10^3/cmm (130-400); Red Blood Count 3.99 10^6/uL (4.1-5.3); White Blood Count 12.6 10^3/uL (4.0-10.0)
== END 2022-06-16 21:45 | disposition home or self-care (01) ==
PROVIDERS: Visit Provider Nurse Practitioner Family
DX: M86.172 Other acute osteomyelitis, left ankle and foot (principal)
CPT/HCPCS: 85025

== ENCOUNTER 2022-06-18 14:22 | Outpatient (CLI) | payer MEDICARE, MEDICAID, SELFPAY ==
[2022-06-18 14:52] LABS: Alanine Aminotransferase 7 U/L (0-41); Albumin Level 2.6 g/dL (3.5-5.2); Alkaline Phosphatase 108 U/L (40-130); Blood Urea Nitrogen 23 mg/dL (8-23); Calcium 8.3 mg/dL (8.5-10.5); Carbon Dioxide 36 mmol/L (22-29); Chloride 93 mmol/L (98-107); Globulin 3.3 g/dL (1.3-4.6); Glucose 75 mg/dL (65-115); NT Pro B Type Natriuretic Pept 5486 pg/mL (0-450); Osmolality Calculated 286 mOsm/kg (285-295); Sodium 137 mmol/L (136-145); Total Bilirubin 0.8 mg/dL (0.15-1.2); Total Protein 5.9 g/dL (6.6-8.7)
[2022-06-18 14:56] LABS: Anion Gap 12.7 (5-19); Aspartate Amino Transferase 20 U/L (0-40); Potassium 4.7 mmol/L (3.5-5.1)
[2022-06-18 15:47] LABS: Digoxin 0.3 ng/mL (0.6-1.2)
== END 2022-06-18 14:23 | disposition home or self-care (01) ==
LOC: LAB 14:26
PROVIDERS: Visit Provider Electrodiagnostic Medicine
DX: I50.9 Heart failure, unspecified (principal)
CPT/HCPCS: 80048; 80076; 80162; 83880